=== PATIENT | female | born 1960 | race Caucasian/White ===

== ENCOUNTER → 2018-01-01 13:54 | Outpatient (CLI) | payer BC, SELFPAY ==
--- NOTE | 2018-01-01 13:58 | RAD_ITS ---
STUDY: X-RAY - LEFT KNEE REASON FOR EXAM: Female, 57 years old. Pain. TECHNIQUE: Single frontal view(s) of the knee. COMPARISON: None. FINDINGS: Extremely limited single view of the knee. No gross acute fracture. No gross displacement. Mild narrowing of the left medial compartment. RAD/Knee 1 or 2 Views IMPRESSION: No acute abnormality on extremely limited single frontal view of the knee. If clinically indicated, an actual knee series should be performed. Electronically Signed: Shaka Humphrey MD at 9:45 EDT , Service support ,
--- NOTE | 2018-01-01 13:58 | RAD_ITS ---
STUDY: X-RAY - PELVIS AND BILATERAL HIPS REASON FOR EXAM: Female, 57 years old. Pain TECHNIQUE: Radiological exam, hip, bilateral, with pelvis when performed; 2 views COMPARISON: None. FINDINGS: There is a non-specific bowel gas pattern. Normal visualized soft tissue structures. Normal bilateral iliac wings, sacroiliac joints and visualized sacrum. Normal bilateral superior and inferior pubic rami. Normal pubic symphysis. Normal bilateral ischial tuberosities. Normal visualized right femoral head. Normal right acetabulum. Normal right hip joint. Normal visualized left femoral head. Normal left acetabulum. Normal left hip joint. RAD/Hips B/L min 2 views w/ Pelvis IMPRESSION: Normal x-ray examination of the pelvis and bilateral hips. Electronically Signed: Shaka Humphrey MD at 9:48 EDT , Service support ,
--- NOTE | 2018-01-01 13:58 | RAD_ITS ---
STUDY: X-RAY - LEFT HAND REASON FOR EXAM: Female, 57 years old. Pain TECHNIQUE: 3 view(s) of the hand. 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 There is no evidence of acute fracture or dislocation. There are no significant degenerative changes. There are no radiodense foreign bodies. RAD/Hand Min 3 Views IMPRESSION: No acute fracture or dislocation. 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 Electronically Signed: Dakota Millan, at 21:15 EDT Tel , Service support ,
--- NOTE | 2018-01-01 13:58 | RAD_ITS ---
STUDY: X-RAY - RIGHT KNEE REASON FOR EXAM: Female, 57 years old. Pain. TECHNIQUE: Single frontal view(s) of the knee. COMPARISON: None. FINDINGS: Extremely limited single view of the knee. No gross acute fracture. No gross displacement. Mild narrowing of the left medial compartment. RAD/Knee 1 or 2 Views IMPRESSION: No acute abnormality on extremely limited single frontal view of the knee. If clinically indicated, an actual knee series should be performed. Electronically Signed: Shaka Humphrey MD at 9:45 EDT , Service support ,
--- NOTE | 2018-01-01 14:00 | RAD_ITS ---
STUDY: X-RAY - RIGHT HAND REASON FOR EXAM: Female, 57 years old. Pain TECHNIQUE: 3 view(s) of the hand. COMPARISON: None. FINDINGS: There is no evidence of fracture or dislocation. There are no significant degenerative changes. There are no radiodense foreign bodies. RAD/Hand Min 3 Views IMPRESSION: No fracture or dislocation. Electronically Signed: Dakota Millan, at 21:19 EDT Tel , Service support ,
== END ==
PROVIDERS: Family Provider Internal Medicine; PCP Internal Medicine; Visit Provider Internal Medicine
DX: M25.561 Pain in right knee (principal); M25.562 Pain in left knee; M79.641 Pain in right hand; M79.642 Pain in left hand; M25.551 Pain in right hip; M25.552 Pain in left hip
CPT/HCPCS: 73130; 73521; 73560

== ENCOUNTER → 2019-01-03 | Outpatient (CLI) | payer BC, SELFPAY ==
--- NOTE | 2019-01-03 11:08 | US_ITS ---
STUDY: ABDOMINAL ULTRASOUND - RIGHT UPPER QUADRANT REASON FOR VISIT: Female, 58 years old. Elevated liver enzymes. TECHNIQUE: Ultrasound evaluation of the right upper quadrant was performed with real-time and static davidson-scale imaging. TECHNICAL QUALITY: Adequate. COMPARISON: None. FINDINGS: Liver: The liver measures 13.3 cm. There is normal echogenicity of the liver. The bile ducts are within normal limits. There is hepatic color flow. The direction of portal flow is hepatopetal. There is no demonstrated mass lesion. Gallbladder: Normal distended gallbladder. The gallbladder wall measures 2 mm. There is a negative sonographic Guy's sign. There is no pericholecystic fluid. There are no gallstones. Common Bile Duct (C.B.D.): The common bile duct measures 2 mm. Pancreas: Normal size of the head, body and tail of the pancreas. There is normal echogenicity of the pancreas. There is no demonstrated pancreatic mass or cyst. Right Kidney: Normal size of the right kidney. The right kidney measures 11.2 cm. Normal renal cortex. The right cortex measures 1.0 cm. There is no demonstrated renal mass or cyst. There is no right hydronephrosis. US/Liver IMPRESSION: Normal right upper quadrant ultrasound examination. Electronically Signed: Rolf Rodriguez MD at 15:35 EDT , Service support ,
== END | disposition home or self-care (01) ==
LOC: US 11:00
PROVIDERS: Family Provider Internal Medicine; PCP Internal Medicine; Referring Provider Nurse Practitioner; Visit Provider Nurse Practitioner
DX: R74.8 Abnormal levels of other serum enzymes (principal)
CPT/HCPCS: 76705

== ENCOUNTER → 2019-05-20 | Outpatient (CLI) | payer BC, SELFPAY ==
[2019-05-20 15:42] LABS: Color, Urine Yellow (Yellow); Glucose, Dipstick Normal (Normal); Ketone-Dipstick Negative (Negative); Leukocyte Esterase-Dipstick Negative /ul (Negative); Nitrite-Dipstick Negative (Negative); Occult Blood-Urine Negative /ul (Negative); Protein-Dipstick Negative (Negative); Urine Bilirubin Dipstick Negative (Negative); Urine Clarity Clear (Clear); Urine Urobilinogen Normal (Normal)
[2019-05-20 15:48] LABS: Prothrombin Time (Protime)PT. 12.7 SECONDS (11.7-14.9)
[2019-05-20 15:49] LABS: Partial Thromboplast Time 28.9 Seconds (24.1-36.2)
[2019-05-20 15:59] LABS: Hematocrit 43.1 % (37-47); Hemoglobin 13.9 g/dL (12.0-15.0); Mean Corp Hgb Conc 32.3 g/dL (32-36); Mean Corpuscular Hgb 28.9 pg (27.0-32.0); Mean Corpuscular Volume 89.6 fL (81-99); Mean Platelet Vol. 12.5 fl (6.2-12.0); Platelet Count 264 K/mm3 (150-450); RBC Distribution Width CV 13.1 % (11.6-14.6); RBC Distribution Width SD 42.7 fl (35.1-43.9); Red Blood Count 4.81 M/mm3 (4.2-5.4); White Blood Count 5.8 K/mm3 (4.4-11.0)
[2019-05-20 16:14] LABS: Anion Gap 10 (5-15); BUN 22 mg/dL (7-18); BUN/Creat Ratio 30.8 RATIO (10-20); Calcium,Total 8.6 mg/dL (8.5-10.1); Chloride 109 mmol/L (98-107); Creatinine, Serum 0.72 mg/dL (0.55-1.02); EST Glomerular Filtration Rate 88 mL/min (>60); Est Glom Filt Rate - Afr Amer 107 mL/min (>60); Glucose 80 mg/dL (74-106); Potassium 3.5 mmol/L (3.5-5.1); Sodium Level 144 mmol/L (136-145)
== END | disposition home or self-care (01) ==
LOC: MTLAB 13:55
PROVIDERS: Family Provider Internal Medicine; PCP Internal Medicine; Referring Provider Orthopaedic Surgery; Visit Provider Orthopaedic Surgery
DX: M17.11 Unilateral primary osteoarthritis, right knee (principal); M21.161 Varus deformity, not elsewhere classified, right knee
CPT/HCPCS: 36415; 80048; 81002; 85027; 85610; 85730; 87086; 87088

== ENCOUNTER 2020-01-09 12:50 | Emergency (ER) | payer BC, SELFPAY ==
[2020-01-09 12:51] VITALS: BP 155/78; PULSE 65; RESP 16; TEMP 36.1; O2SAT 97; BMI 26.5
--- NOTE | 2020-01-09 13:02 | CT_ITS ---
STUDY: CT BRAIN WITHOUT CONTRAST REASON FOR EXAM: Female, 59 years old. DIZZINESS, N/V, RT EAR PAIN, GENERAL WEAKNESS RADIATION DOSAGE (If Supplied By Facility): CTDIvol = ( 44.99 ) mGy, DLP = ( 745.49 ) mGycm TECHNIQUE: Transaxial CT imaging of the brain was performed without administration of intravenous contrast material. Individualized dose optimization techniques were used for this CT. COMPARISON: No relevant priors. FINDINGS: Normal soft tissue structures. Normal calvarium. Normal size ventricles and extra-axial spaces for the patient''s age. Normal white matter tracts of the cerebral hemispheres. Normal basal ganglia and thalami. Normal brainstem. Normal cerebellum. There is no intracranial hemorrhage. There are no findings of an acute ischemic infarction. Normal visualized paranasal sinuses. CT/Brain/Head without Contrast IMPRESSION: No acute intracranial abnormality. Electronically Signed: Derrek Cha, at 14:39 EDT Tel , Service support ,
--- NOTE | 2020-01-09 13:08 | ED.VIS.GEN ---
History of Present Illness Chief Complaint: Dizziness Informant: Patient Onset: Today Context: Sudden Onset Timing: Continuous Current Severity: Moderate Maximum Severity: Moderate Narrative: The patient is an otherwise healthy 59-year-old female presents to the emergency department with further acute onset dizziness that she describes a sensation of motion. Patient states she had a mild headache this morning. She states she got significant pressure in her right ear, and then began to have acute vertiginous symptoms. She states she is been nauseated with vomiting. She states if she moves, and makes her symptoms worse. She is never had anything like this before. She denies any fevers or chills. She denies any other upper respiratory symptoms. She states she is otherwise been in her normal state of health. Prior similar symptoms: No Recent Illness/Hospitalization: No Past Medical History - Allergies and Home Meds Allergies/Adverse Reactions: Allergies No Known Allergies Allergy (Verified 01/09/20 12:52) Primary Care Physician: Isabel Bhakta DO [Primary Care Provider] - Prior records reviewed: Yes Past Medical History: None Surgical History: noncontributory Review of Systems General: Denies: Chills, Fever, Sweats Eyes: Denies: Visual changes - bilaterally, Diplopia ENT: Reports: Right ear pain. Denies: Rhinorrhea, Sore throat Cardiovascular: Denies: Chest pain, Palpitations Respiratory: Denies: Dyspnea, Cough, Dyspnea on exertion Gastrointestinal: Reports: Nausea, Vomiting. Denies: Abdominal pain, Diarrhea, Melena, Hematochezia Genitourinary: Denies: Dysuria, Hematuria, Frequency Musculoskeletal: Denies: Back pain, Extremity Pain Skin: Denies: Rash, Wounds Neurological: Reports: Headache. Denies: Weakness, Numbness Physical Exam Vital Signs/Narrative: Vital Signs Temp Pulse Resp BP Pulse Ox 01/09/20 12:51 97 F L 65 16 155/78 H 97 Inital Vital Signs reviewed: Yes General: Well nourished, Well developed, No Acute Distress Head: Normocephalic, Atraumatic Eyes: Perrl, EOMI ENT: Moist mucous membranes, No rhinorrhea Neck: Supple, Nontender Cardiovascular: Regular rate, Regular rhythm, No murmurs Respiratory: No distress, CTA bilaterally, Chest nontender Abdomen: Soft, Nontender, Nondistended, Normal bowel sounds Back: Nontender, Normal Inspection Extremities: Nontender, No edema Skin: Normal color, No rash Neurological: Alert, Oriented x3, Cranial nerves II-XII grossly intact, Normal Strength, Normal Sensation Psychological: Normal affect, Normal Mood Diagnostic/Tx/Re-eval Clinical Impression(s) from Imaging Studies Brain CT 01/09/20 13:02 IMPRESSION: No acute intracranial abnormality. Electronically Signed: Derrek Cha, at 14:39 EDT Tel , Service support , Abnormal Lab Results 01/09/20 01/09/20 01/09/20 13:25 13:25 14:00 WBC 6.7 RBC 4.87 Hgb 14.5 Hct 44.9 MCV 92.2 MCH 29.8 MCHC 32.3 RDW Std Deviation 45.4 H RDW Coeff of Melva 13.3 Plt Count 254 MPV 11.9 Immature Gran % (Auto) 0.300 Neut % (Auto) 68.1 Lymph % (Auto) 22.5 [place] % (Auto) 5.5 Eos % (Auto) 3.0 Baso % (Auto) 0.6 Absolute Neuts (auto) 4.6 Absolute Lymphs (auto) 1.51 Nucleated RBC % 0 Sodium Cancelled 140 Potassium Cancelled 3.8 Chloride Cancelled 108 H Carbon Dioxide Cancelled 24.0 Anion Gap Cancelled 8 BUN Cancelled 27 H Creatinine Cancelled 0.77 Estim Creat Clear Calc Cancelled 61.45 Est GFR (MDRD) Af Amer Cancelled 98 Est GFR (MDRD) Non-Af Cancelled 81 BUN/Creatinine Ratio Cancelled 35.0 H Glucose Cancelled 97 Calcium Cancelled 8.7 - Medical Decision Making Patient presents with rather acute onset vertiginous symptoms. With any motion, she gets acutely nauseated. Patient was given IV fluids, antiemetics, and benzodiazepines to help with her vertiginous symptoms. Screening labs were obtained were unremarkable. Noncontrast head CT shows no acute abnormalities. Patient did attempt to ambulate. Patient was able to ambulate with a steady gait without any symptoms. She has no persistent vertiginous symptoms that make me concerned for a central cause. Is now her symptoms are controlled and she is feeling improved, I do feel that she is safe for discharge. She will be treated with vertiginous medications. She was counseled on concerning symptoms and reasons to return. Impression 1. Vertigo ED Disposition - Plan for ED Patient: Instructions: ED BPV Vertigo Prescriptions: Prednisone [Deltasone] 40 mg PO DAILY #10 tab Prescription Printed Meclizine HCl 25 mg PO Q8H PRN PRN #30 tab PRN Reason: Vertigo Prescription Printed Ondansetron [Zofran Odt] 4 mg PO Q8H PRN PRN #10 tab PRN Reason: Nausea Prescription Printed Referrals: Isabel Bhakta DO [Primary Care Provider] -
[2020-01-09] MEDS: proMETHazine 25 MG/ML Syringe 6.25 MG IV (13:28)
[2020-01-09] MEDS: diazePAM 10 MG/2 ML Syringe 6 MG IV (13:30)
[2020-01-09 13:47] LABS: Absolute Lymphocyte Count 1.51 X10^3/uL (0.83-4.51); Absolute Neutrophil Count 4.6 X10^3/uL (2.0-7.7); Basophil# 0.04 X10^3/uL; Basophil% 0.6 % (0-1); Hematocrit 44.9 % (37-47); Hemoglobin 14.5 g/dL (12.0-15.0); Lymphocyte # 1.51 X10^3/ul (4.0); Lymphocyte % 22.5 % (19-41); Mean Corp Hgb Conc 32.3 g/dL (32-36); Mean Corpuscular Hgb 29.8 pg (27.0-32.0); Mean Corpuscular Volume 92.2 fL (81-99); Mean Platelet Vol. 11.9 fl (6.2-12.0); Monocyte# 0.37 X10^3/uL; Monocyte% 5.5 % (0-10); NRBC Flagged by Analyzer 0 % (0-5); Neutrophil # 4.58 X10^3/uL (2.7-7.7); Neutrophil % 68.1 % (47-70); Platelet Count 254 K/mm3 (150-450); RBC Distribution Width CV 13.3 % (11.6-14.6); RBC Distribution Width SD 45.4 fl (35.1-43.9); Red Blood Count 4.87 M/mm3 (4.2-5.4); White Blood Count 6.7 K/mm3 (4.4-11.0)
[2020-01-09 14:26] LABS: Anion Gap 8 (5-15); BUN 27 mg/dL (7-18); Calcium,Total 8.7 mg/dL (8.5-10.1); Chloride 108 mmol/L (98-107); Creatinine, Serum 0.77 mg/dL (0.55-1.02); EST Glomerular Filtration Rate 81 mL/min (>60); Est Glom Filt Rate - Afr Amer 98 mL/min (>60); Estimated Creatinine Clearance 61.45 ml/min; Glucose 97 mg/dL (74-106); Potassium 3.8 mmol/L (3.5-5.1); Sodium Level 140 mmol/L (136-145)
[2020-01-09 15:25] VITALS: BP 135/91; PULSE 63; RESP 19; O2SAT 99
== END 2020-01-09 16:00 | disposition home or self-care (01) ==
PROVIDERS: Emergency Provider Emergency Medicine; PCP Internal Medicine
DX: H81.10 Benign paroxysmal vertigo, unspecified ear (principal); R51 Headache; H92.01 Otalgia, right ear
CPT/HCPCS: 70450; 80048; 85025; 96374; 96375; 99285; J7040; A4216

== ENCOUNTER 2021-03-02 00:39 | Observation (INO) | payer BC, SELFPAY ==
[2021-03-02] VITALS (11 sets, daily range): BP systolic 122–186; BP diastolic 72–107; PULSE 56–73; RESP 16–18; TEMP 36.4–36.8; O2SAT 95–99; BMI 31.2; BMI 31.6
--- NOTE | 2021-03-02 01:00 | CT_ITS ---
STUDY: CTA CHEST REASON FOR EXAM: Female, 61 years old. r/o dissection RADIATION DOSAGE (If Supplied By Facility): CTDIvol = ( 13.35 ) mGy, DLP = ( 492.13 ) mGycm TECHNIQUE: The examination was performed with the intravenous administration of IV 100mL Isovue-370. Post-processing of the angiographic images was performed, with multiplanar reformation and 3D reconstruction. Individualized dose optimization techniques were used for this CT. COMPARISON: None. FINDINGS: Normal enhancement of the main pulmonary artery and right and left pulmonary arteries. Normal enhancement of the bilateral peripheral pulmonary arteries. There is no demonstrated pulmonary embolism. Normal thoracic aorta and visualized great vessels. There is no demonstrated aortic dissection. Normal cardiac size. Normal mediastinum. Normal hilar regions. Normal visualized trachea and bronchi. The lungs are well expanded. Minimal posterior dependent atelectasis otherwise normal pulmonary parenchyma. Normal pleura. Normal chest wall structures. There are degenerative changes of thoracic spine. There is partial fusion of T9 and T10 vertebral bodies. No acute fracture. Minimal hiatal hernia versus thickening of distal esophageal wall. If indicated, these findings may be assessed with upper endoscopy. CT/CTA Chest W/WO Contrast IMPRESSION: Negative CTA chest examination, without a demonstrated pulmonary embolism or arterial dissection. Minimal posterior dependent/lower lobe atelectasis otherwise no acute cardiopulmonary process. Hiatal hernia versus thickening of distal esophageal wall. If indicated, this may be further assessed with upper endoscopy. Electronically Signed: Elsi De León MD at 2:39 EDT , Service support ,
--- NOTE | 2021-03-02 01:00 | EKG12_ITS ---
Test Reason : CP Blood Pressure : / mmHG Vent. Rate : 061 BPM Atrial Rate : 061 BPM P-R Int : 134 ms QRS Dur : 096 ms QT Int : 370 ms P-R-T Axes : 046 002 082 degrees QTc Int : 372 ms Normal sinus rhythm Inferior infarct , age undetermined Abnormal ECG Confirmed by DARIEN GIRALDO, MARYBEL ([id number]), editor managing director FISH IBARRA ([id number]) on 03/02/2021 12:02:47 PM Referred By: OLENA Confirmed By:MARYBEL LEDEZMA MD
[2021-03-02 01:10] LABS: Absolute Lymphocyte Count 2.23 X10^3/uL (0.83-4.51); Absolute Neutrophil Count 3.1 X10^3/uL (2.0-7.7); Basophil# 0.05 X10^3/uL; Basophil% 0.8 % (0-1); Eosinophils% 4.8 % (0-5); Hemoglobin 13.7 g/dL (12.0-15.0); Lymphocyte # 2.23 X10^3/ul (0.83-4.51); Lymphocyte % 35.3 % (19-41); Mean Corp Hgb Conc 32.6 g/dL (32-36); Mean Corpuscular Hgb 29.1 pg (27.0-32.0); Mean Corpuscular Volume 89.4 fL (81-99); Mean Platelet Vol. 11.3 fl (6.2-12.0); Monocyte# 0.59 X10^3/uL; Monocyte% 9.4 % (0-10); NRBC Flagged by Analyzer 0 % (0-5); Neutrophil # 3.12 X10^3/uL (2.7-7.7); Neutrophil % 49.4 % (47-70); Platelet Count 225 K/mm3 (150-450); RBC Distribution Width CV 13.4 % (11.6-14.6); RBC Distribution Width SD 44.2 fl (35.1-43.9); White Blood Count 6.3 K/mm3 (4.4-11.0)
[2021-03-02] MEDS: Aspirin 81 MG TAB.CHEW 324 MG PO (01:12)
[2021-03-02 01:28] LABS: Anion Gap 4 (5-15); BUN 29 mg/dL (7-18); Calcium,Total 8.7 mg/dL (8.5-10.1); Chloride 107 mmol/L (98-107); Creatinine, Serum 0.76 mg/dL (0.55-1.02); EST Glomerular Filtration Rate 82 mL/min (>60); Est Glom Filt Rate - Afr Amer 99 mL/min (>60); Glucose 100 mg/dL (74-106); Potassium 3.6 mmol/L (3.5-5.1); Sodium Level 137 mmol/L (136-145)
--- NOTE | 2021-03-02 03:05 | EX.ED.DYSGE1 ---
HPI History of Present Illness Chief Complaint: Other, Pain/Inj Informant: patient Onset/Context/Timing Onset: Today Current Severity: Moderate Maximum Severity: Severe Narrative Narrative: 61-year-old female presenting with chest pain. She states that she began having pain in her mid back which then radiated to her chest. She states the pain then went down both arms. She had associated nausea and diaphoresis with this. She states initially pain was 10 out of 10, currently 4 out of 10. She has a family history of heart disease. She is not a smoker. No PE/DVT risk factors. Prior similar symptoms: No Recent Illness/Hospitalization: No PFSH PFSH Home Medications NK 03/02/21 [History Last Taken Unknown] Allergy/AdvReac Type Severity Reaction Status Date / Time No Known Allergies Allergy Verified 03/02/21 00:46 Social History Smoking Status: Never smoker ROS ROS ED Constitutional Constitutional ED: Denies fever(s) Eyes Eyes: Denies change in vision ENT ENT ED: Denies rhinorrhea or sore throat Cardiovascular Cardiovascular: Reports chest pain; Denies palpitations Respiratory/Chest Respiratory/Chest: Denies cough or dyspnea Gastrointestinal Gastrointestinal: Reports nausea; Denies abdominal pain, diarrhea or vomiting Genitourinary Genitourinary ED: Denies dysuria Musculoskeletal Musculoskeletal: Reports back pain; Denies myalgias Integumentary Denies rash Neurologic Neurologic: Denies headache(s) Psychiatric Psychiatric: Denies suicidal thoughts EXAM Physical Exam Const Vital Signs: 03/02/21 00:40 03/02/21 00:46 03/02/21 01:08 Temperature 97.7 F L Temperature Source Oral Pulse Rate 73 Respiratory Rate 18 Respiratory Effort Normal Non-Labored Respiratory Pattern Normal Blood Pressure 186/92 H Blood Pressure Mean 123 Pulse Ox 96 Oxygen Delivery Method Room Air Room Air 03/02/21 03:23 Temperature Temperature Source Pulse Rate Respiratory Rate 16 Respiratory Effort Respiratory Pattern Blood Pressure Blood Pressure Mean Pulse Ox Oxygen Delivery Method Positive well nourished and well developed General Appearance ED: well developed HEENT Reports normocephalic and head/scalp atraumatic Eyes PERRL and EOMs intact bilaterally Neck supple General: Negative for tenderness Chest Wall inspection of chest normal Resp normal respiratory effort and clear to auscultation bilaterally Cardio regular rate and regular rhythm GI non-tender and non-distended Palpation: soft; Negative for guarding or rebound tenderness present no CVA tenderness Extremity normal to inspection Neuro oriented x3 Sensorium / Orientation: alert Psych mental status grossly normal MDM MDM MDM Narrative Medical decision making narrative: Patient was given aspirin on arrival. EKG is sinus rhythm rate of 61 with no acute ischemic changes. On reevaluation patient is chest pain-free. Her heart score is 4. Discussed with hospitalist for observation. Lab Data Attestation: I reviewed the patient's lab results. Labs: Laboratory Results - last 24 hr 03/02/21 03/02/21 01:05 01:05 WBC 6.3 RBC 4.70 Hgb 13.7 Hct 42.0 MCV 89.4 MCH 29.1 MCHC 32.6 RDW Std Deviation 44.2 H RDW Coeff of Melva 13.4 Plt Count 225 MPV 11.3 Immature Gran % (Auto) 0.300 Neut % (Auto) 49.4 Lymph % (Auto) 35.3 [place] % (Auto) 9.4 Eos % (Auto) 4.8 Baso % (Auto) 0.8 Absolute Neuts (auto) 3.1 Absolute Lymphs (auto) 2.23 Nucleated RBC % 0 Sodium 137 Potassium 3.6 Chloride 107 Carbon Dioxide 26.0 Anion Gap 4 L BUN 29 H Creatinine 0.76 Estim Creat Clear Calc 60.70 Est GFR (MDRD) Af Amer 99 Est GFR (MDRD) Non-Af 82 BUN/Creatinine Ratio 38.0 H Glucose 100 Calcium 8.7 Troponin I High Sens 39.0 Radiography Diagnostic Testing: Radiology Impression Chest CTA 03/02/21 01:00 IMPRESSION: Negative CTA chest examination, without a demonstrated pulmonary embolism or arterial dissection. Minimal posterior dependent/lower lobe atelectasis otherwise no acute cardiopulmonary process. Hiatal hernia versus thickening of distal esophageal wall. If indicated, this may be further assessed with upper endoscopy. Electronically Signed: Elsi De León MD at 2:39 EDT , Service support , EKG Initial EKG: Attestation: I personally reviewed and interpreted this EKG as follows: Interpretation: Sinus Rhythm and No Acute Injury Pattern Discharge Plan Triage Chief Complaint: Other, Pain/Inj ED Provider: Caprice Bull Dx/Rx/DC Orders Clinical Impression: Chest pain Prescriptions: No Action NK RF: 0 Primary Care Provider: Isabel Bhakta Referrals: Isabel Bhakta, [Primary Care Provider] - Disposition Disposition: Acute Care Hospital [facility]
--- NOTE | 2021-03-02 03:32 | PCM.HP.STD ---
HPI - General HPI Narrative BRAYAN PABON, is a 61 F with a PMH as outlined who presents with a complaint of chest pain which started in her mid back and radiated to her chest. Chest pain went down both arms, and she rated it at 10/10 initially, though it came down to 4/10. She denied any lightheadedness, fever, chills, nausea or ovmiting. REview of systems is otherwise negative. She has no history of heart disease but she does have a family history of heart disease. Vitals in the ED showed BP of 155/68, AL of 65, temp of 97 and RR of 16. CBC was unremarkable and BMP was unremarkable. Initial troponin was also negative. EKG showed no acute changes. Due to concerns for dissection, she had a CTA done in the ED which was negative for any evidence of dissection or PE. She has been admitted to medicine for chest pain to rule out ACS. [facility] Home Medications NK 03/02/21 [History Last Taken Unknown] Allergy/AdvReac Type Severity Reaction Status Date / Time No Known Allergies Allergy Verified 03/02/21 00:46 Social History Smoking Status: Never smoker ROS Constitutional Constitutional: Denies anorexia, fever(s) or weakness Eyes Eyes: Denies double vision ENT HEENT: Denies ear pain or nasal congestion Cardiovascular Cardiovascular: Reports chest pain; Denies dyspnea on exertion, edema, lightheadedness, orthopnea or palpitations Respiratory/Chest Respiratory/Chest: Denies cough, dyspnea, productive cough, shortness of breath at rest or shortness of breath with exertion Gastrointestinal Gastrointestinal: Denies abdominal pain, constipation, diarrhea, nausea or vomiting Genitourinary Genitourinary: Denies burning urination or difficulty urinating Musculoskeletal Musculoskeletal: Denies arthralgias Neurologic Neurologic: Denies abnormal gait, confusion, dizziness, focal weakness or headache(s) Psychiatric Psychiatric: Denies anxiety Endocrine Endocrinology: Denies change in body appearance Vital Signs Vital Signs Vital Signs: 03/02/21 00:40 03/02/21 00:46 03/02/21 01:08 Temperature 97.7 F L Temperature Source Oral Pulse Rate 73 Respiratory Rate 18 Respiratory Effort Normal Non-Labored Respiratory Pattern Normal Blood Pressure 186/92 H Blood Pressure Mean 123 Pulse Ox 96 Oxygen Delivery Method Room Air Room Air 03/02/21 03:23 Temperature Temperature Source Pulse Rate Respiratory Rate 16 Respiratory Effort Respiratory Pattern Blood Pressure Blood Pressure Mean Pulse Ox Oxygen Delivery Method Weight Weight: 170 lb 13.732 oz Body Mass Index (BMI) 31.2 Physical Exam Const alert, oriented x3 and no apparent distress General Appearance: cooperative HEENT normocephalic, head/scalp atraumatic, hearing grossly normal bilaterally and moist oral mucous membranes Eyes PERRL, EOMs intact bilaterally and conjunctivae normal Neck no lymphadenopathy Resp normal respiratory effort, no retractions, no use of accessory muscles and clear to auscultation bilaterally Cardio regular rate, regular rhythm, S1 normal heart sound, S2 normal heart sound and no murmurs GI normal to inspection, nondistended, normoactive bowel sounds, soft to palpation, non-tender and non-distended Extremity normal to inspection Peripheral Pulses: Yes pulses 2+ throughout Skin no rashes or lesions noted Neuro oriented x3 Sensorium / Orientation: awake and alert Psych affect normal Results Lab / Micro Data Result Diagrams: 03/02/21 01:05 03/02/21 01:05 Labs: Laboratory Results - last 24 hr 03/02/21 01:05: WBC 6.3, RBC 4.70, Hgb 13.7, Hct 42.0, MCV 89.4, MCH 29.1, MCHC 32.6, RDW Std Deviation 44.2 H, RDW Coeff of Melva 13.4, Plt Count 225, MPV 11.3, Immature Gran % (Auto) 0.300, Neut % (Auto) 49.4, Lymph % (Auto) 35.3, [place] % (Auto) 9.4, Eos % (Auto) 4.8, Baso % (Auto) 0.8, Absolute Neuts (auto) 3.1, Absolute Lymphs (auto) 2.23, Nucleated RBC % 0 03/02/21 01:05: Sodium 137, Potassium 3.6, Chloride 107, Carbon Dioxide 26.0, Anion Gap 4 L, BUN 29 H, Creatinine 0.76, Estim Creat Clear Calc 60.70, Est GFR (MDRD) Af Amer 99, Est GFR (MDRD) Non-Af 82, BUN/Creatinine Ratio 38.0 H, Glucose 100, Calcium 8.7, Troponin I High Sens 39.0 Radiology Impression Chest CTA 03/02/21 01:00 IMPRESSION: Negative CTA chest examination, without a demonstrated pulmonary embolism or arterial dissection. Minimal posterior dependent/lower lobe atelectasis otherwise no acute cardiopulmonary process. Hiatal hernia versus thickening of distal esophageal wall. If indicated, this may be further assessed with upper endoscopy. Electronically Signed: Elsi De León MD at 2:39 EDT , Service support , Assessment & Plan Assessment/Plan (1) Chest pain: PLAN: #Chest pain to r/o ACS admit to PCU with telemetry initial high sensitivity troponin was only 39 will cycle and trend CTA of the chest was negative for PE, and showed hiatal hernia vs thickening of distal esophageal wall. SL nitroglycerin prn PO aspirin 81mg daily for stress test if troponins are negative DVT prophylaxis: lovenox Charges/Coding Visit Charges OBSV E&M: 63902 Initial observation care L2
[2021-03-02 04:54] LABS: Absolute Neutrophil Count 3.3 X10^3/uL (2.0-7.7); Basophil# 0.04 X10^3/uL; Basophil% 0.7 % (0-1); Eosinophil# 0.26 X10^3/uL; Eosinophils% 4.3 % (0-5); Hematocrit 42.2 % (37-47); Hemoglobin 13.9 g/dL (12.0-15.0); Lymphocyte % 31.4 % (19-41); Mean Corp Hgb Conc 32.9 g/dL (32-36); Mean Corpuscular Hgb 29.8 pg (27.0-32.0); Mean Corpuscular Volume 90.4 fL (81-99); Mean Platelet Vol. 11.1 fl (6.2-12.0); Monocyte# 0.55 X10^3/uL; Monocyte% 9.1 % (0-10); NRBC Flagged by Analyzer 0 % (0-5); Neutrophil % 54.3 % (47-70); Platelet Count 233 K/mm3 (150-450); RBC Distribution Width CV 13.5 % (11.6-14.6); Red Blood Count 4.67 M/mm3 (4.2-5.4); White Blood Count 6.1 K/mm3 (4.4-11.0)
[2021-03-02 05:12] LABS: Anion Gap 7 (5-15); BUN 26 mg/dL (7-18); BUN/Creat Ratio 33.2 RATIO (10-20); Calcium,Total 8.5 mg/dL (8.5-10.1); Chloride 107 mmol/L (98-107); Creatinine, Serum 0.78 mg/dL (0.55-1.02); EST Glomerular Filtration Rate 79 mL/min (>60); Est Glom Filt Rate - Afr Amer 96 mL/min (>60); Estimated Creatinine Clearance 59.15 ml/min; Glucose 93 mg/dL (74-106); Potassium 3.9 mmol/L (3.5-5.1); Sodium Level 140 mmol/L (136-145); Troponin-I HS 41.5 pg/mL (3.0-53.7)
--- NOTE | 2021-03-02 05:55 | EKG12_ITS ---
Test Reason : AM EKG/CP ADMIT Blood Pressure : / mmHG Vent. Rate : 056 BPM Atrial Rate : 056 BPM P-R Int : 128 ms QRS Dur : 100 ms QT Int : 396 ms P-R-T Axes : 044 018 062 degrees QTc Int : 382 ms Sinus bradycardia Confirmed by MARANDA GIRALDO, DEMI ([id number]), editorial project manager FISH IBARRA ([id number]) on 03/03/2021 9:09:46 AM Referred By: CANDICE Confirmed By:DEMI LOW MD
[2021-03-02 06:50] LABS: Troponin-I HS 41.8 pg/mL (3.0-53.7)
[2021-03-02 13:05] LABS: Thyroid Stim Hormone (TSH) 0.88 uIU/mL (0.358-3.74); Troponin-I HS 44.5 pg/mL (3.0-53.7)
--- NOTE | 2021-03-02 13:05 | STRESSREP_ITS ---
Stress Test Report Exercise myocardial perfusion stress test. 61-year-old lady with a history of chest pain. Stress protocol: Resting EKG demonstrates normal sinus rhythm with a rate of 56 bpm. Resting blood pressure is 120/78 mmHg. The patient exercised according to the regular Ray protocol for a total of 7 minutes and 31 seconds. Patient completed 1 mi nute and 31 seconds into stage III of the Ray protocol. The maximum heart rate attained was 148 bpm which was 93% of max infected heart rate the maximum workload was 9.3 metabolic equivalents. At rest there were no ST or T wave changes noted to suggest ischemia at peak exercise there were nonspecific and downsloping ST changes noted with did not meet the criteria for ischemia. No chest pain was noted mild shortness of breath was present though. The test was terminated due to the target heart rate being achieved. There was mild right jaw pain noted of questionable significance. Myocardial perfusion protocol. 11.0 mCi of technetium 99m sestamibi was injected at rest. The patient exercised according to regular Ray protocol and at peak exercise 34.0 mCi of technetium 99m sestamibi was injected. Stress images were obtained. Stress and rest images were reconstructed and compared in the short axis vertical long and horizontal long axis. Gated images were also obtained. Perfusion SPECT analysis: Review of the stress images demonstrate normal uptake of tracer noted in all areas of the myocardium. The resting images similarly demonstrate normal uptake of tracer noted in all areas of the myocardium. No areas of reversibility are noted to suggest ischemia. No previous infarct is noted. Gated SPECT analysis: The gated ejection fraction is 81%. Conclusion: Normal exercise myocardial perfusion stress test at a moderate to high workload. Preserved ejection fraction.
--- NOTE | 2021-03-02 13:18 | PCM.DC ---
Documented by User: Joshua BAGLEY 03/02/21 13:44 Discharge Instructions Diet Discharge Diet: No restrictions Activity Discharge Activity: Return to Normal Activity Dressing / Incision Call your doctor if you observe: Fever of 101 or Higher, Numbness or Tingling, Shortness of breath, Dizziness, Chest pain, Increased palpitations (irregular heartbeat) and Calf discomfort Follow Up Care Please Follow Up With: Primary care provider When: Within the next two weeks. Test Results: Test results from this visit will be discussed in further detail at your follow-up appointment, if applicable. Discharge Plan Admission Admit Date/Time: 03/02/21 03:44 Primary Reason for Your Visit: Chest pain, stress testing negative, Suspected non-cardiac, Hypertension Attending Provider: Petrona Carpenter Primary Care Provider: Isabel Bhakta Instructions Patient Instructions: ED Chest Pain, Noncardiac, ED Hypertension New Begin Treatment Additional Instructions / Restrictions: The chest pain you experienced is not from your heart. The stress test is negative and your heart squeezed normally. The shelter monitor you wore showed no problem with the rhythm of your heart. Additionally, the cardiac enzyme series performed remained normal. Sometimes chest pain can come from a problem with the muscles or skeleton and/or associated with straining or doing some strenuous activity you do not normally perform. Generally Aleve or Motrin will help alleviate this discomfort if these medications are appropriate for you to take. Chest pain can also be associated with anxiety and with this you frequently have racing heart, trouble sleeping and irritability. It can also come from gastroesophageal reflux disease or heartburn. People who smoke experience increased heartburn because nicotine decreases the pressure in the lower esophageal sphincter and causes reflux. This type of discomfort is well treated with drinking a large glass of cold water which strips the acid out of the esophagus or taking Mylanta, Maalox or Pepto-Bismol. Other foods to avoid if you have reflux are chocolate, peppermint and calcium containing products such as Tums. During the admission however your blood pressure was noted to be elevated several times above goal concerning for hypertension. You have been initiated on oral amlodipine and this has been also sent as a prescription to your pharmacy. Please continue this regimen and follow-up with your primary care physicians for further adjustments and changes as needed to obtain blood pressure appropriate control. Discharge Orders/Prescriptions Prescriptions: New amlodipine 10 mg Tablet 10 mg PO DAILY 30 Days Qty: 30 RF: 0 aspirin [Aspirin Low Dose] 81 mg tablet,delayed release (DR/EC) 81 mg PO DAILY 30 Days Qty: 30 RF: 0 Referrals / Follow Up: Isabel Bhakta DO [Primary Care Provider] - Within 2 Weeks Disposition Disposition (needs filled in before D/C Order can be placed): Home, Self Care Documented by User: Dr. Petrona Carpenter MD 03/02/21 14:21 Discharge Instructions Diet Discharge Diet: Low fat / Low cholesterol Activity Discharge Activity: Return to Normal Activity Dressing / Incision Call your doctor if you observe: Fever of 101 or Higher, Shortness of breath, Dizziness, Chest pain, Increased palpitations (irregular heartbeat) and Uncontrolled pain Discharge Plan Admission Admit Date/Time: 03/02/21 03:44 Primary Reason for Your Visit: Chest pain, stress testing negative, Suspected non-cardiac, Hypertension Attending Provider: Petrona Carpenter Primary Care Provider: Isabel Bhakta Instructions Patient Instructions: ED Chest Pain, Noncardiac, ED Hypertension New Begin Treatment Additional Instructions / Restrictions: The chest pain you experienced is not from your heart. The stress test is negative and your heart squeezed normally. The shelter monitor you wore showed no problem with the rhythm of your heart. Additionally, the cardiac enzyme series performed remained normal. Sometimes chest pain can come from a problem with the muscles or skeleton and/or associated with straining or doing some strenuous activity you do not normally perform. Generally Aleve or Motrin will help alleviate this discomfort if these medications are appropriate for you to take. Chest pain can also be associated with anxiety and with this you frequently have racing heart, trouble sleeping and irritability. It can also come from gastroesophageal reflux disease or heartburn. People who smoke experience increased heartburn because nicotine decreases the pressure in the lower esophageal sphincter and causes reflux. This type of discomfort is well treated with drinking a large glass of cold water which strips the acid out of the esophagus or taking Mylanta, Maalox or Pepto-Bismol. Other foods to avoid if you have reflux are chocolate, peppermint and calcium containing products such as Tums. During the admission however your blood pressure was noted to be elevated several times above goal concerning for hypertension. You have been initiated on oral amlodipine and this has been also sent as a prescription to your pharmacy. Please continue this regimen and follow-up with your primary care physicians for further adjustments and changes as needed to obtain blood pressure appropriate control. Discharge Orders/Prescriptions Prescriptions: New amlodipine 10 mg Tablet 10 mg PO DAILY 30 Days Qty: 30 RF: 0 aspirin [Aspirin Low Dose] 81 mg tablet,delayed release (DR/EC) 81 mg PO DAILY 30 Days Qty: 30 RF: 0 Referrals / Follow Up: Isabel Bhakta DO [Primary Care Provider] - Within 2 Weeks Disposition Disposition (needs filled in before D/C Order can be placed): Home, Self Care
--- NOTE | 2021-03-02 13:44 | DS.PCM_ITS ---
Documented by User: Joshua BAGLEY 03/02/21 13:52 Providers Date of Admission: 03/02/21 Primary Care Physician: Dr. Isabel Bhakta DO Reason For Visit: CHEST PAIN Diagnosis Discharge Diagnosis (1) Chest pain: Status: Acute Code(s): R07.9 - Chest pain, unspecified Medications at Discharge Home Medications amlodipine 10 mg PO DAILY 30 Days #30 tab 03/02/21 aspirin [Aspirin Low Dose] 81 mg PO DAILY 30 Days #30 tab 03/02/21 Hospital Course Procedures Nuclear stress test Summary of Care Provided Minutes Spent on Discharge: 35 Hospital Course: Disposition: Patient to be discharged home, no additional therapies or home health care needs identified. 1) chest pain EKG on on admission demonstrated sinus bradycardia with no ST or T wave changes. High-sensitivity troponins not elevated throughout cycle. CT-A demonstrated no evidence of PE or arterial dissection. Cardiac stress test demonstrated normal myocardial perfusion with a preserved ejection fraction of 81%. TSH within normal limits. CBC and BMP unremarkable. Vital signs stable and patient is afebrile. Plan; follow-up with primary care provider within the next 2 weeks. Patient seen by Joshua Worthington PA-C, under the supervision of Dr. Carpenter. Physical Exam Narrative Patient is a 61-year-old female comfortably resting in bed, alert and orient x3. Patient reports resolution of her chest pain on admission. Denies chest pain, shortness of breath, palpitations, hemoptysis, sputum production, fever, chills, N/V/D. Const alert, oriented x3 and no apparent distress HEENT normocephalic, head/scalp atraumatic and hearing grossly normal bilaterally Eyes PERRL, EOMs intact bilaterally and conjunctivae normal Neck no lymphadenopathy, supple and no JVD Resp normal respiratory effort, no retractions, no use of accessory muscles and clear to auscultation bilaterally Cardio regular rate, regular rhythm, no murmurs and no JVD GI normal to inspection, nondistended, normoactive bowel sounds, soft to palpation and non-tender Extremity normal to inspection, full ROM and no clubbing, cyanosis or edema Skin no rashes or lesions noted, no wounds and skin turgor normal Neuro CN's II-XII intact bilaterally Psych affect normal Weight / BMI Weight Weight: 173 lb 4.533 oz Body Mass Index (BMI) 31.6 ABG / Lab / Microbiology Data Result Diagrams: 03/02/21 04:44 03/02/21 04:44 Laboratory: Laboratory Results - last 24 hr 03/02/21 01:05: WBC 6.3, RBC 4.70, Hgb 13.7, Hct 42.0, MCV 89.4, MCH 29.1, MCHC 32.6, RDW Std Deviation 44.2 H, RDW Coeff of Melva 13.4, Plt Count 225, MPV 11.3, Immature Gran % (Auto) 0.300, Neut % (Auto) 49.4, Lymph % (Auto) 35.3, [place] % (Auto) 9.4, Eos % (Auto) 4.8, Baso % (Auto) 0.8, Absolute Neuts (auto) 3.1, Absolute Lymphs (auto) 2.23, Nucleated RBC % 0 03/02/21 01:05: Sodium 137, Potassium 3.6, Chloride 107, Carbon Dioxide 26.0, Anion Gap 4 L, BUN 29 H, Creatinine 0.76, Estim Creat Clear Calc 60.70, Est GFR (MDRD) Af Amer 99, Est GFR (MDRD) Non-Af 82, BUN/Creatinine Ratio 38.0 H, Gluco se 100, Calcium 8.7, Troponin I High Sens 39.0 03/02/21 04:44: WBC 6.1, RBC 4.67, Hgb 13.9, Hct 42.2, MCV 90.4, MCH 29.8, MCHC 32.9, RDW Std Deviation 45.0 H, RDW Coeff of Melva 13.5, Plt Count 233, MPV 11.1, Immature Gran % (Auto) 0.200, Neut % (Auto) 54.3, Lymph % (Auto) 31.4, [place] % (Auto) 9.1, Eos % (Auto) 4.3, Baso % (Auto) 0.7, Absolute Neuts (auto) 3.3, Absolute Lymphs (auto) 1.90, Nucleated RBC % 0 03/02/21 04:44: Sodium 140, Potassium 3.9, Chloride 107, Carbon Dioxide 26.0, Anion Gap 7, BUN 26 H, Creatinine 0.78, Estim Creat Clear Calc 59.15, Est GFR (MDRD) Af Amer 96, Est GFR (MDRD) Non-Af 79, BUN/Creatinine Ratio 33.2 H, Glucose 93, Calcium 8.5, Troponin I High Sens 41.5 03/02/21 06:18: Troponin I High Sens 41.8 03/02/21 12:35: Troponin I High Sens 44.5, TSH 0.88 Radiography Diagnostic Testing: Radiology Impression Chest CTA 03/02/21 01:00 IMPRESSION: Negative CTA chest examination, without a demonstrated pulmonary embolism or arterial dissection. Minimal posterior dependent/lower lobe atelectasis otherwise no acute cardiopulmonary process. Hiatal hernia versus thickening of distal esophageal wall. If indicated, this may be further assessed with upper endoscopy. Electronically Signed: Elsi De León MD at 2:39 EDT , Service support , D/C Instructions Discharge Diet: No restrictions Call your doctor if you observe: Fever of 101 or Higher, Numbness or Tingling, Shortness of breath, Dizziness, Chest pain, Increased palpitations (irregular heartbeat) and Calf discomfort Please Follow Up With: Primary care provider When: Within the next two weeks. Meaningful Use Info Meaningful Use Diagnoses (Choose all that apply): None applicable Discharge Plan Admission Admit Date/Time: 03/02/21 03:44 Primary Reason for Your Visit: Chest pain, stress testing negative, Suspected non-cardiac, Hypertension Attending Provider: Petrona Carpenter Primary Care Provider: Isabel Bhakta Instructions Patient Instructions: ED Chest Pain, Noncardiac, ED Hypertension New Begin Treatment Additional Instructions / Restrictions: The chest pain you experienced is not from your heart. The stress test is negative and your heart squeezed normally. The campus monitor you wore showed no problem with the rhythm of your heart. Additionally, the cardiac enzyme series performed remained normal. Sometimes chest pain can come from a problem with the muscles or skeleton and/or associated with straining or doing some strenuous activity you do not normally perform. Generally Aleve or Motrin will help alleviate this discomfort if these medications are appropriate for you to t bess. Chest pain can also be associated with anxiety and with this you frequently have racing heart, trouble sleeping and irritability. It can also come from gastroesophageal reflux disease or heartburn. People who smoke experience increased heartburn because nicotine decreases the pressure in the lower esophageal sphincter and causes reflux. This type of discomfort is well treated with drinking a large glass of cold water which strips the acid out of the esophagus or taking Mylanta, Maalox or Pepto-Bismol. Other foods to avoid if you have reflux are chocolate, peppermint and calcium containing products such as Tums. During the admission however your blood pressure was noted to be elevated s everal times above goal concerning for hypertension. You have been initiated on oral amlodipine and this has been also sent as a prescription to your pharmacy. Please continue this regimen and follow-up with your primary care physicians for further adjustments and changes as needed to obtain blood pressure appropriate control. Discharge Orders/Prescriptions Prescriptions: New amlodipine 10 mg Tablet 10 mg PO DAILY 30 Days Qty: 30 RF: 0 aspirin [Aspirin Low Dose] 81 mg tablet,delayed release (DR/EC) 81 mg PO DAILY 30 Days Qty: 30 RF: 0 Referrals / Follow Up: Isabel Bhakta DO [Primary Care Provider] - Within 2 Weeks Disposition Disposition (needs filled in before D/C Order can be placed): Home, Self Care Documented by User: Dr. Petrona Carpenter MD 03/02/21 14:25 Providers Date of Admission: 03/02/21 Reason For Visit: CHEST PAIN Medications at Discharge Home Medications amlodipine 10 mg PO DAILY 30 Days #30 tab 03/02/21 aspirin [Aspirin Low Dose] 81 mg PO DAILY 30 Days #30 tab 03/02/21 ABG / Lab / Microbiology Data Result Diagrams: 03/02/21 04:44 03/02/21 04:44 Discharge Plan Admission Admit Date/Time: 03/02/21 03:44 Primary Reason for Your Visit: Chest pain, stress testing negative, Suspected non-cardiac, Hypertension Attending Provider: Petrona Carpenter Primary Care Provider: Isabel Bhakta Instructions Patient Instructions: ED Chest Pain, Noncardiac, ED Hypertension New Begin Treatment Additional Instructions / Restrictions: The chest pain you experienced is not from your heart. The stress test is negative and your heart squeezed normally. The campus monitor you wore showed no problem with the rhythm of your heart. Additionally, the cardiac enzyme series performed remained normal. Sometimes chest pain can come from a problem with the muscles or skeleton and/or associated with straining or doing some strenuous activity you do not normally perform. Generally Aleve or Motrin will help alleviate this discomfort if these medications are appropriate for you to take. Chest pain can also be associated with anxiety and with this you frequently have racing heart, trouble sleeping and irritability. It can also come from gastroesophageal reflux disease or heartburn. People who smoke experience increased heartburn because nicotine decreases the pressure in the lower esophageal sphincter and causes reflux. This type of discomfort is well treated with drinking a large glass of cold water which strips the acid out of the esophagus or taking Mylanta, Maalox or Pepto-Bismol. Other foods to avoid if you have reflux are chocolate, peppermint and calcium containing products such as Tums. During the admission however your blood pressure was noted to be elevated sever al times above goal concerning for hypertension. You have been initiated on oral amlodipine and this has been also sent as a prescription to your pharmacy. Please continue this regimen and follow-up with your primary care physicians for further adjustments and changes as needed to obtain blood pressure appropriate control. Discharge Orders/Prescriptions Prescriptions: New amlodipine 10 mg Tablet 10 mg PO DAILY 30 Days Qty: 30 RF: 0 aspirin [Aspirin Low Dose] 81 mg tablet,delayed release (DR/EC) 81 mg PO DAILY 30 Days Qty: 30 RF: 0 Referrals / Follow Up: Isabel Bhakta DO [Primary Care Provider] - Within 2 Weeks Disposition Disposition (needs filled in before D/C Order can be placed): Home, Self Care
--- NOTE | 2021-03-02 14:02 | PHA.DC.MR ---
Pharmacy Service has performed discharge medication reconciliation for this patient. The patient's discharge medication list was reviewed for discrepancies and discrepancies were resolved. Home Medications NK 03/02/21
== END 2021-03-02 13:19 | disposition home or self-care (01) ==
LOC: ED 03:39 → PCU 03:49
PROVIDERS: Admitting Provider Student in an Organized Health Care Education/Training Program; Emergency Provider Emergency Medicine; PCP Internal Medicine; Visit Provider Family Medicine
DX: R07.89 Other chest pain (principal); Z82.49 Family history of ischemic heart disease and other diseases of the circulatory system; R00.1 Bradycardia, unspecified; I10 Essential (primary) hypertension; E66.9 Obesity, unspecified; Z68.31 Body mass index [BMI] 31.0-31.9, adult
CPT/HCPCS: 36415; 71275; 78452; 80048; 84443; 84484; 85025; 93005; 93017; 99218; 99285; A9500; Q9967; A4216; G0378

== ENCOUNTER → 2021-04-19 09:15 | Outpatient (CLI) | payer BC, SELFPAY ==
--- NOTE | 2021-04-19 09:19 | RAD_ITS ---
Exam: Double contrasted esophagram. Indication: 68-year-old female presenting with dysphagia. Technique: Standard esophagram with barium and effervescent capsules. Fluoroscopy time: 2:05 minutes/seconds. Findings: Unremarkable oropharyngeal phase of swallowing, unremarkable transit of the contrast bolus into the esophagus. Unremarkable transit of the contrast bolus through the esophagus. Irregularity and contractility of the esophagus is visualized, there is delayed transit visualized through the gastroesophageal junction visualized secondary to a 1.3 cm segment of the narrowing visualized in the gastroesophageal junction that delays transit but eventually slightly (, findings suggestive of for irregular circumferential thickening along the wall of the gastroesophageal junction would recommend further evaluation with either endoscopy or CT scan. No evidence of esophageal diverticula is visualized. No evidence of gastroesophageal reflux. RAD/Esophagus Dual Contrast IMPRESSION: 1.3 segment at the gastroesophageal junction demonstrates severe circumferential thickening would recommend further evaluation to rule out a mass. Electronically Signed: Bean Mcrae MD at 12:38 EDT Tel , Service support ,
== END ==
PROVIDERS: PCP Internal Medicine; Referring Provider Internal Medicine Gastroenterology; Visit Provider Internal Medicine Gastroenterology
DX: R13.10 Dysphagia, unspecified (principal)
CPT/HCPCS: 74221

== ENCOUNTER → 2021-05-10 13:30 | Outpatient (CLI) | payer BC, SELFPAY | PROVIDERS: PCP Internal Medicine; Referring Provider Internal Medicine Gastroenterology; Visit Provider Internal Medicine Gastroenterology | DX: Z11.59 Encounter for screening for other viral diseases (principal) | CPT/HCPCS: 87635; C9803; U0005; U0003 ==

== ENCOUNTER 2021-10-24 16:55 | Emergency (ER) | payer BC, SELFPAY ==
[2021-10-24 16:56] VITALS: BP 148/73; PULSE 68; RESP 15; TEMP 36; O2SAT 97; BMI 28.3
--- NOTE | 2021-10-24 17:17 | EX.ED.DYSGE1 ---
HPI History of Present Illness Chief Complaint: Cold Sx Informant: patient Narrative Narrative: 2-week history of postnasal drainage. Cough started 2 days ago due to postnasal drip. Denies asthma or COPD. No fevers or headache. No vomiting or diarrhea. No loss of taste or smell. Nonvaccinated for Covid. Denies sick contacts. States nausea due to coughing sensations. Seasonal allergies is on Claritin daily. Prior similar symptoms: Yes PFSH PFSH Medical History Kidney stones Non-smoker Osteoporosis Home Medications amlodipine 10 mg PO DAILY 30 Days #30 tab 03/02/21 [Rx Last Taken Unknown] aspirin [Aspirin Low Dose] 81 mg PO DAILY 30 Days #30 tab 03/02/21 [Rx Last Taken Unknown] azithromycin 250 mg PO DAILY #4 tab 10/24/21 [Rx Last Taken Unknown] ondansetron 4 mg PO Q6H PRN #10 tab 10/24/21 [Rx Last Taken Unknown] Allergy/AdvReac Type Severity Reaction Status Date / Time No Known Allergies Allergy Verified 03/02/21 00:46 Social History Smoking Status: Never smoker ROS ROS ED Constitutional Constitutional ED: Denies chills, fever(s) or sweats Eyes Eyes: Denies change in vision ENT ENT ED: Reports other Details: Sinus congestion with postnasal drainage ; Denies dysphagia or sore throat Cardiovascular Cardiovascular: Denies chest pain, leg edema, palpitations or racing heartbeat Respiratory/Chest Respiratory/Chest: Reports cough; Denies dyspnea or dyspnea on exertion Gastrointestinal Gastrointestinal: Denies abdominal pain, diarrhea, nausea or vomiting Genitourinary Genitourinary ED: Denies dysuria, hematuria or urinary frequency Musculoskeletal Musculoskeletal: Denies back pain, extremity pain or neck pain Integumentary Denies rash or wounds Neurologic Neurologic: Denies headache(s), paresthesias or weakness EXAM Physical Exam Const Vital Signs: 10/24/21 16:56 10/24/21 17:43 Temperature 96.8 F L Temperature Source Temporal Pulse Rate 68 Respiratory Rate 15 Respiratory Pattern Tachypnea Blood Pressure 148/73 H Blood Pressure Mean 98 Pulse Ox 97 Oxygen Delivery Method Room Air Positive well nourished and well developed Constitutional Narrative: Occasional coughing exam. General Appearance ED: well developed and NAD HEENT Reports TM's clear and moist mucous membranes HEENT Narrative: Clear rhinorrhea no swollen turbinates. normocephalic and atraumatic Tympanic Membrane ED: Yes TM's clear Eyes PERRL, EOMs intact bilaterally and conjunctivae normal General Eye ED: Yes normal appearance of both eyes Neck no lymphadenopathy and supple General: Negative for tenderness Chest Wall Chest: Negative for tenderness Resp normal respiratory effort and normal air movement Effort and Inspection: symmetric chest movement; Negative for respiratory distress Cardio regular rate, regular rhythm and no murmurs Peripheral Pulses: pulses 2+ throughout GI normal to inspection, nondistended, normoactive bowel sounds and non-tender Palpation: Negative for guarding or rebound tenderness present Back/Spine no CVA tenderness and no thoracic nor lumbar tenderness Extremity normal to inspection General Extremety ED: Negative for edema or tenderness General Extremity: Negative for edema Neuro oriented x3 and no sensory deficits noted Sensorium / Orientation: awake and alert Skin no rashes or lesions noted and no wounds MDM MDM MDM Narrative Medical decision making narrative: Vital stable pulse ox 97%. 2 weeks congestion symptoms with start of a cough. Afebrile. She has no other symptoms for concerning Covid except for sinus congestion with 2 weeks of symptoms. With worsening symptoms now with a cough discussed antibiotic treatment for which she agrees. Zithromax started. She given Zofran for nausea. First dose in the ED prescription sent to her pharmacy. Return precautions discussed otherwise follow-up with her PCP. All questions were answered. Discharge Plan Triage Chief Complaint: Cold Sx ED Provider: Steve Mayo Dx/Rx/DC Orders Clinical Impression: Sinusitis, URI (upper respiratory infection) Instructions: ED Upper Resp Infec Abx Tx, ED Sinusitis (Antibiotic Treatment) Prescriptions: New azithromycin [azithromycin] 250 MG tablet 250 mg PO DAILY Qty: 4 RF: 0 ondansetron 4 mg tablet,disintegrating 4 mg PO Q6H PRN (Reason: nausea and vomiting) Qty: 10 RF: 0 No Action amlodipine 10 mg Tablet 10 mg PO DAILY 30 Days Qty: 30 RF: 0 aspirin [Aspirin Low Dose] 81 mg tablet,delayed release (DR/EC) 81 mg PO DAILY 30 Days Qty: 30 RF: 0 Primary Care Provider: Isabel Bhakta Referrals: Isabel Bhakta DO [Primary Care Provider] - 5-7 Days Disposition Disposition: Home, Self Care Discharge Date/Time: 10/24/21 17:46
[2021-10-24] MEDS: Azithromycin 250 MG Tablet 500 MG PO (17:39)
[2021-10-24] MEDS: Ondansetron ODT 4 MG Tablet 8 MG PO (17:39)
== END 2021-10-24 17:46 | disposition home or self-care (01) ==
LOC: ED 17:26
PROVIDERS: Emergency Provider Emergency Medicine; PCP Internal Medicine; Visit Provider Emergency Medicine
DX: J32.9 Chronic sinusitis, unspecified (principal); J06.9 Acute upper respiratory infection, unspecified; J30.2 Other seasonal allergic rhinitis; R11.0 Nausea; M81.0 Age-related osteoporosis without current pathological fracture; Z79.82 Long term (current) use of aspirin; Z79.899 Other long term (current) drug therapy
CPT/HCPCS: 99283

== ENCOUNTER 2023-07-03 05:23 | Emergency (ER) | payer BC, SELFPAY ==
[2023-07-03 05:24] VITALS: BP 170/94; PULSE 61; RESP 16; TEMP 36.4; O2SAT 96; BMI 33.5
--- NOTE | 2023-07-03 05:40 | CT_ITS ---
INDICATION: Kidney Stone COMPARISON: Chest CT 03/02/2021. RADIATION DOSAGE (If Supplied By Facility): CTDIvol = ( 12.21 ) mGy, DLP = ( 567.15 ) mGycm A radiation dose optimization technique was used for this scan. FINDINGS: Noncontrast serial CT axial images through the abdomen and pelvis with coronal and sagittal reformatted series. PANCREAS: No peripancreatic fat stranding. BOWEL/MESENTERY: No dilated bowel loops. No significant free fluid. No free air. Severe diffuse colonic diverticulosis without focus of diverticulitis. GALLBLADDER: No pericholecystic fat stranding. LIVER/STOMACH: Small hiatal hernia. Fatty liver. URINARY COLLECTING SYSTEM/ KIDNEYS: No obstructing ureteral calculus. However, there may be tiny 2 mm calculus within the posterior dependent urinary bladder, which may have recently passed from ureter. No significant renal parenchymal abnormality. UTERUS/ADNEXA: Small posterior exophytic subserosal uterine fibroid containing dystrophic calcifications APPENDIX: Normal caliber gas containing appendix. ABDOMINAL/CHEST WALL: Right medial breast 14 mm asymmetric soft tissue density on axial image 8 of series 2. LUNG BASES: Unremarkable. BONES: Stable L1 superior endplate compression deformity from 2020. CT/Abdomen/Pelvis without Cont IMPRESSION: Right medial breast 14 mm asymmetric soft tissue density. Recommend follow-up mammographic Department evaluation. No obstructing ureteral calculus. However, there may be tiny 2 mm calculus within the posterior dependent urinary bladder, which may have recently passed from ureter. Otherwise, no acute abdominal abnormality is identified, to include normal appendix. Severe diffuse colonic diverticulosis without focus of diverticulitis. Fatty liver. Electronically Signed: Efe Dominique MD at 6:27 EST ,
--- NOTE | 2023-07-03 05:43 | EX.ED.DYSGE1 ---
HPI History of Present Illness Chief Complaint: Flank Pain Informant: patient Narrative Narrative: 63-year-old healthy female presenting to the emergency room with right flank pain. Symptoms began abruptly on her sleep which caused her to wake up around 0400 hrs. Patient states the pain was very severe and she felt nauseous but has subsequently started to subside. She notes some discomfort on the right side of her abdomen. She reports nothing different with her urination this morning she notes no prior abdominal surgeries. She has had a kidney stone 10 to 15 years ago and states that this reminds her very much of that. She was able to pass that stone on her own. [facility] Medical History Acute sinusitis, unspecified Kidney stones Non-smoker Osteoporosis URI (upper respiratory infection) Home Medications NK 07/03/23 [History Last Taken Unknown] Allergy/AdvReac Type Severity Reaction Status Date / Time No Known Allergies Allergy Verified 07/03/23 05:23 Surgical History History of bilateral knee replacement Social History Smoking Status: Never smoker ROS ROS ED Constitutional Constitutional ED: Denies chills, fever(s) or weight loss Eyes Eyes: Denies change in vision or diplopia ENT ENT ED: Denies ear pain, rhinorrhea or sore throat Cardiovascular Cardiovascular: Denies chest pain, orthopnea, palpitations or racing heartbeat Respiratory/Chest Respiratory/Chest: Denies cough, dyspnea or orthopnea Gastrointestinal Gastrointestinal: Reports abdominal pain and nausea; Denies diarrhea or vomiting Genitourinary Genitourinary ED: Denies dysuria, hematuria or urinary frequency Musculoskeletal Musculoskeletal: Reports back pain; Denies arthralgias or myalgias Integumentary Denies abscess or rash Neurologic Neurologic: Denies headache(s) or weakness Psychiatric Psychiatric: Denies anxiety, depression, suicidal ideation or suicidal thoughts Endocrine Endocrinology: Denies polydipsia, polyphagia or polyuria Allergic/Immunologic Allergic/Immunologic ED: Denies mouth swelling, tongue swelling or urticaria EXAM Physical Exam Const Vital Signs: 07/03/23 05:24 07/03/23 07:25 Temperature 97.5 F L Temperature Source Temporal Pulse Rate 61 Respiratory Rate 16 18 Blood Pressure 170/94 H Blood Pressure Mean 119 Pulse Ox 96 Oxygen Delivery Method Room Air Positive well nourished and well developed General Appearance ED: well developed HEENT Reports normocephalic, head/scalp atraumatic and moist mucous membranes Eyes PERRL and EOMs intact bilaterally Neck no lymphadenopathy, supple and no JVD Resp normal respiratory effort and clear to auscultation bilaterally Cardio regular rate, regular rhythm and no murmurs GI normal to inspection, nondistended, normoactive bowel sounds and non-tender Palpation: soft Back/Spine no CVA tenderness and normal ROM Extremity normal to inspection General Extremety ED: Negative for edema General Extremity: Negative for edema Neuro oriented x3 and CN's II-XII intact bilaterally Sensorium / Orientation: alert Motor Exam: strength 5/5 throughout Psych mental status grossly normal Mood & Affect: Negative for depressed or tearful Skin no rashes or lesions noted and no wounds MDM MDM MDM Narrative Medical decision making narrative: Patient received a dose of Toradol. White count is normal at 6.6 with hemoglobin of 15.2. Platelet count of 251. Glucose of [address] ab pelvis demonstrates a 2 mm stone in the dependent portion of the bladder. Patient urinated and passed the stone. Urine shows no overt infection. I think the patient can be discharged home. Would recommend follow-up as needed Of note on the patient's CT there were 2 additional findings which I made sure to tell the patient the first is that she has extensive diverticulosis. She notes that she had a colonoscopy in 2017 and was told she would need another one for 10 years. The second is on the right medial breast she has a 14 mm asymmetric soft tissue density. I recommend that she follow-up with primary care or with her sales project engineer to explore further evaluation for this. The patient notes understanding of this and agrees with its high priority. Lab Data Attestation: I reviewed the patient's lab results. Labs: Laboratory Results - last 24 hr 07/03/23 07/03/23 01:17 05:29 WBC 6.6 RBC 5.19 Hgb 15.2 H Hct 47.4 H MCV 91.3 MCH 29.3 MCHC 32.1 RDW Std Deviation 44.8 H RDW Coeff of Melva 13.2 Plt Count 251 MPV 11.8 Immature Gran % (Auto) 0.500 Neut % (Auto) 58.1 Lymph % (Auto) 28.8 [place] % (Auto) 7.6 Eos % (Auto) 4.1 Baso % (Auto) 0.9 Absolute Neuts (auto) 3.8 Absolute Lymphs (auto) 1.89 Nucleated RBC % 0 Sodium 140 Potassium 3.7 Chloride 109 H Carbon Dioxide 26.0 Anion Gap 5 BUN 32 H Creatinine 0.79 Estim Creat Clear Calc 56.90 Est GFR (MDRD) Af Amer 95 Est GFR (MDRD) Non-Af 78 BUN/Creatinine Ratio 40.7 H Glucose 117 H Calcium 8.3 L Urine Color Yellow Urine Clarity Clear Urine pH 6.0 Ur Specific Murray 1.020 Urine Protein 15 H Urine Glucose (UA) Normal Urine Ketones Negative Urine Occult Blood 250 H Urine Nitrite Negative Urine Bilirubin Negative Urine Urobilinogen Normal Ur Leukocyte Esterase Negative Urine RBC 10-25 SEEN Urine WBC 0 SEEN Ur Squamous Epith Cells 0-5 SEEN Urine Bacteria 0 SEEN Urine Mucus 0 SEEN Radiography Diagnostic Testing: Clinical Impression(s) from Imaging Studies Abdomen/Pelvis CT 07/03/23 05:40 IMPRESSION: Right medial breast 14 mm asymmetric soft tissue density. Recommend follow-up mammographic Department evaluation. No obstructing ureteral calculus. However, there may be tiny 2 mm calculus within the posterior dependent urinary bladder, which may have recently passed from ureter. Otherwise, no acute abdominal abnormality is identified, to include normal appendix. Severe diffuse colonic diverticulosis without focus of diverticulitis. Fatty liver. Electronically Signed: Efe Dominique MD at 6:27 EST , Discharge Plan Triage Chief Complaint: Flank Pain ED Provider: Amari Grier Dx/Rx/DC Orders Clinical Impression: Acute right flank pain, Kidney stone, Diverticulosis, Abnormal breast finding Instructions: ED Kidney Stone, Passed Prescriptions: No Action NK Primary Care Provider: Isabel Bhakta Referrals: Katey Reid MD [Med Staff - Active Staff] - 3-5 Days if not improving (For urology) Isabel Bhakta DO [Primary Care Provider] - Disposition Disposition: Home, Self Care
[2023-07-03 05:50] LABS: Absolute Lymphocyte Count 1.89 X10^3/uL (0.83-4.51); Absolute Neutrophil Count 3.8 X10^3/uL (2.0-7.7); Basophil# 0.06 X10^3/uL; Basophil% 0.9 % (0-1); Eosinophil# 0.27 X10^3/uL; Eosinophils% 4.1 % (0-5); Hematocrit 47.4 % (37-47); Hemoglobin 15.2 g/dL (12.0-15.0); Lymphocyte # 1.89 X10^3/ul (0.83-4.51); Lymphocyte % 28.8 % (19-41); Mean Corp Hgb Conc 32.1 g/dL (32-36); Mean Corpuscular Hgb 29.3 pg (27.0-32.0); Mean Corpuscular Volume 91.3 fL (81-99); Mean Platelet Vol. 11.8 fl (6.2-12.0); Monocyte% 7.6 % (0-10); NRBC Flagged by Analyzer 0 % (0-5); Neutrophil # 3.82 X10^3/uL (2.7-7.7); Neutrophil % 58.1 % (47-70); Platelet Count 251 K/mm3 (150-450); RBC Distribution Width CV 13.2 % (11.6-14.6); RBC Distribution Width SD 44.8 fl (35.1-43.9); Red Blood Count 5.19 M/mm3 (4.2-5.4); White Blood Count 6.6 K/mm3 (4.4-11.0)
[2023-07-03] MEDS: Ketorolac 30 MG/ML Syringe IV (05:55)
[2023-07-03 06:04] LABS: Anion Gap 5 (5-15); BUN 32 mg/dL (7-18); BUN/Creat Ratio 40.7 RATIO (10-20); Calcium,Total 8.3 mg/dL (8.5-10.1); Chloride 109 mmol/L (98-107); Creatinine, Serum 0.79 mg/dL (0.55-1.02); EST Glomerular Filtration Rate 78 mL/min (>60); Est Glom Filt Rate - Afr Amer 95 mL/min (>60); Glucose 117 mg/dL (74-106); Potassium 3.7 mmol/L (3.5-5.1); Sodium Level 140 mmol/L (136-145)
[2023-07-03 07:23] LABS: Bacteria 0 SEEN /hpf (None Seen); Mucous, Urine 0 SEEN /hpf (<or=2+); White Blood Cells 0 SEEN /hpf (0-5)
[2023-07-03 07:25] VITALS: RESP 18
[2023-07-03 07:33] LABS: Color, Urine Yellow (Yellow); Glucose, Dipstick Normal (Normal); Ketone-Dipstick Negative (Negative); Leukocyte Esterase-Dipstick Negative /ul (Negative); Nitrite-Dipstick Negative (Negative); Occult Blood-Urine 250 /ul (Negative); Protein-Dipstick 15 mg/dl (Negative); Urine Bilirubin Dipstick Negative (Negative); Urine Clarity Clear (Clear); Urine Urobilinogen Normal (Normal)
[2023-07-03 08:00] LABS: Red Blood Cells-Urine 10-25 SEEN /hpf (0-5)
[2023-07-03 08:02] LABS: Squamous Epithelial Cells - UA 0-5 SEEN /hpf (5-10)
== END 2023-07-03 08:32 | disposition home or self-care (01) ==
PROVIDERS: Emergency Provider Emergency Medicine; PCP Internal Medicine; Visit Provider Emergency Medicine
DX: R10.9 Unspecified abdominal pain (principal); K57.30 Diverticulosis of large intestine without perforation or abscess without bleeding; N20.0 Calculus of kidney; Z87.442 Personal history of urinary calculi; R94.8 Abnormal results of function studies of other organs and systems
CPT/HCPCS: 74176; 80048; 81001; 85025; 96374; 99283; A4216

== ENCOUNTER → 2023-10-19 | Outpatient (CLI) | payer BC, SELFPAY ==
--- NOTE | 2023-10-19 14:16 | US_ITS ---
STUDY: ULTRASOUND BREAST - RIGHT REASON FOR EXAM: Female, [address] scan. TECHNIQUE: Axial and longitudinal images of the RIGHT breast were performed with a high resolution ultrasound transducer. # OF IMAGES: 37 COMPARISON: None. FINDINGS: RIGHT Breast: There is a 6 mm x 5 mm x 3 mm well defined hypoechoic nodule at the 7:00 position of the breast at 4 cm from the nipple. Biopsy recommended. US/Breast Limited Unilateral IMPRESSION: 6 mm x 5 mm x 3 mm well-defined hypoechoic nodule at the 7:00 position of the breast of 4 cm from the nipple. Biopsy recommended. ASSESSMENT CATEGORY: BIRADS Category 4: Suspicious - Biopsy Should Be Considered. A letter regarding these results will be sent to the patient by the facility within 30 days. Electronically Signed: Al David MD at 15:56 EST ,
--- NOTE | 2023-10-19 14:16 | BI_ITS ---
MAMMOGRAPHY - BILATERAL DIAGNOSTIC REASON FOR EXAM: Female, 63 years old. abnormal breast mass on CT PERTINENT HISTORY: Non-contributory. TECHNIQUE: Digital examination. Mediolateral oblique (MLO) and craniocaudad (CC) views of both breasts were obtained. CAD: CAD was performed on this study. COMPARISON: 07/29/2010 FINDINGS: Breast Composition: There are scattered areas of fibroglandular density. 1 cm oval obscured equal density mass in the lower outer quadrant right breast at mid depth and ultrasound is recommended for further evaluation. No dominant mass left breast. No suspicious calcifications. No other significant abnormalities are identified. BI/DIAG MAMM W/CAD, BILAT IMPRESSION: Further ultrasonographic evaluation recommended, as described above. ASSESSMENT CATEGORY: BIRADS Category 0: Incomplete. Need additional imaging evaluation. A letter regarding these results will be sent to the patient by the facility within 30 days. FOLLOW UP RECOMMENDATION: Ultrasound Recommended. (I) Approximately 10% of breast cancers are not detected by mammography. A normal mammogram should not delay biopsy of a clinically suspicious abnormality. Electronically Signed: Ciaran Fenton MD at 13:29 EST ,
--- OUTSIDE RECORDS SUMMARY | 2023-10-19 16:59 | XMS RPT_ITS | CCD ---
Author Name Unknown Address [address] [place] [address] Organization [facility] Care Team Providers Care Bottom Filler Name Role Phone Maria Antonia Horta Attending Unavailable Brianna Culver Referring Unavailable Maria Antonia Horta Consulting Unavailable Maria Antonia Horta Unavailable Ned Fisher Unavailable Jorge Alberto Allen Unavailable Blaine Recio Unavailable Unavailable Kalina Mae Unavailable Unavailable Unavailable Unavailable LOLIS FREED Attending Unavailable ISABEL PALMER Primary Care Unavailable Johana Hatfield Unavailable Unavailable Blaine Recio Unavailable Unavailable Blaine Mae Unavailable Unavailable Jenifer Reynolds Unavailable Marya Bermudez Unavailable Unavailable Maria Antonia Horta CNP Unavailable Dr. Ned Fisher Unavailable Dr. Jenifer Reynolds Unavailable Jorge Alberto Allen MD Unavailable Blaine Mae LPN Unavailable Unavailable Marya Bermudez LPN Unavailable Unavailable Kalina Mae Unavailable Unavailable Unavailable Unavailable Maria Antonia Horta Unavailable Allergies Allergy Classification Reported Allergen(s) Allergy Type Date of Onset Reaction(s) Facility Mold (1 source) Mold Substance Allergy [facility] Work Phone: (1 source) allergy to substance [facility] Work Phone: (1 source) allergy to substance [facility] Work Phone: (1 source) allergy to substance [facility] Work Phone: (1 source) allergy to substance [facility] Work Phone: (1 source) allergy to substance [facility] Work Phone: (1 source) allergy to substance [facility] Work Phone: (1 source) allergy to substance [facility] Work Phone: (1 source) allergy to substance [facility] Work Phone: (1 source) allergy to substance [facility] Work Phone: (20 sources) Cat dander extract Drug Allergy [facility] Work Phone: (19 sources) Mold allergy to substance [facility] Work Phone: (20 sources) [place] allergy to substance [facility] Work Phone: Medications Completed/Discontinued Medications Medication Drug Class(es) Dates Sig (Normalized) Sig (Original) alendronic acid 70 mg oral tablet (20 sources) Bisphosphonate Start: 12-27-2017 End: 12-27-2017 take 1 tablet by mouth every week Alendronate Sodium 70 MG Oral Tablet 1 (one) Tablet once a week for 0 days Quantity: 12 {Tablet} Refills: 3 Ordered: 27-Dec-2017 Isabel Palmer DO Start : 27-Dec-2017 End : 27-Dec-2017 Discontinued Comments: Give with water 30min before first food/drink/med of the day. Avoid laying down x 30minutes Problems Active Problems Problem Classification Problem Date Documented Da te Episodic/Chronic Abdominal pain (20 sources) Pain in female pelvis; Translations: [Pelvic pain in female] Resolved: 03-30-2017 12-09-2018 Episodic Administrative/social admission (20 sources) Medical examinations/repo rts status; Translations: [Well woman exam] 12-24-2018 Episodic Calculus of urinary tract (20 sources) Calculus of kidney; Translations: [Calculus, kidney] Resolved: 03-30-2017 12-09-2018 Episodic Cardiac dysrhythmias (20 sources) Palpitations; Translations: [Palpitations] Resolved: 03-30-2017 12-09-2018 Episodic Conditions associated with dizziness or vertigo (12 sources) Vertigo; Translations: [Vertigo] 07-09-2020 Episodic Past or Other Problems Problem Classification Problem Date Documented Da te Episodic/Chronic Conditions associated with dizziness or vertigo (6 sources) Conditions associated with dizziness or vertigo External cause codes: Unspecified (20 sources) Accident; Translations: [Accident] 12-24-2018 Results Test Name Value Interpretation Reference Range Facil ity Vital Signs Date Time Vital Sign Value Performing Clinician Facility 03-08-2021 15:47-0400 Body height 160.02 cm Blaine Mae LPN [facility] Work Phone: 03-08-2021 15:47-0400 Body mass index (BMI) [Ratio] 29.77 kg/m2 Blaine Mae LPN [facility] Work Phone: 03-08-2021 15:47-0400 Body surface area Derived from formula 1.8 m2 Blaine Mae LPN [facility] Work Phone: 03-08-2021 15:47-0400 Body temperature 97.9 [degF] Blaine Mae LPN [facility] Work Phone: Encounters Encounter Date Encounter Type Care Provider Facility Start: 03-08-2021 End: 03-08-2021 Office outpatient visit 25 minutes Maria Antonia Horta [facility] Work Phone: [facility] Start: 07-09-2020 End: 07-09-2020 Annotation/Addendum Maria Antonia Tobias [facility] Start: 07-09-2020 End: 07-09-2020 Office outpatient visit 15 minutes Maria Antonia [facility] Start: 01-13-2020 End: 01-13-2020 Office outpatient visit 15 minutes Maria Antonia [facility] Start: 07-04-2019 End: 07-04-2019 Annotation/Addendum Maria Antonia [facility] Start: 06-10-2019 End: 06-10-2019 Office outpatient visit 25 minutes Maria Antonia [facility] Start: 06-10-2019 End: 06-10-2019 Preprocedural examination done Blaine Mae LPN [facility] Work Phone: Start: 05-20-2019 End: 05-20-2019 Office outpatient visit 5 minutes Maria Antonia [facility] Start: 12-25-2018 End: 12-25-2018 Annotation/Addendum Maria Antonia [facility] Start: 12-24-2018 End: 12-24-2018 Office outpatient visit 25 minutes Maria Antonia [facility] Start: 12-24-2018 End: 12-24-2018 Preprocedural examination done Maria Antonia Horta Work Phone: [facility] Start: 12-23-2018 Patient encounter procedure LOLIS FREED Facility:[facility] Start: 12-10-2018 Patient encounter procedure Maria Antonia [facility] Start: 01-18-2018 End: 01-18-2018 Office outpatient visit 25 minutes Maria Antonia [facility] Start: 01-04-2018 End: 01-04-2018 Office outpatient visit 15 minutes Maria Antonia [facility] Start: 12-27-2017 End: 12-27-2017 Office outpatient visit 15 minutes Maria Antonia [facility] Start: 04-10-2017 End: 04-10-2017 Annotation/Addendum Maria Antonia Tobias [facility] Start: 04-02-2017 End: 04-02-2017 Phone Encounter Maria Antonia Tobias [facility] Start: 03-30-2017 End: 03-30-2017 Office outpatient visit 15 minutes Maria Antonia [facility] Start: 03-09-2017 End: 03-09-2017 Office outpatient new 45 minutes Maria Antonia [facility] Start: 05-19-2013 End: 05-19-2013 Patient encounter procedure Maria Antonia [facility] Start: 05-12-2013 End: 05-12-2013 Phone Encounter Maria Antonia Tobias [facility] Start: 04-22-2013 End: 04-22-2013 Patient encounter procedure Maria Antonia [facility] Start: 08-05-2010 End: 08-05-2010 Patient encounter procedure Maria Antonia [facility] Start: 07-18-2010 End: 07-18-2010 Phone Encounter Maria Antonia [facility]ias [facility] Start: 04-15-2010 End: 04-15-2010 Patient encounter procedure Maria Antonia [facility] Start: 04-15-2010 End: 04-15-2010 Preprocedural examination done Maria Antonia Horta Work Phone: [facility] Start: 02-25-2010 End: 02-25-2010 Patient encounter procedure Maria Antonia Horta [facility] Start: 01-07-2010 End: 01-07-2010 Office outpatient visit 25 minutes Maria Antonia [facility] Start: 10-22-2009 End: 10-22-2009 Patient encounter procedure Maria Antonia Horta [facility] Start: 08-16-2007 End: 08-19-2007 Office outpatient visit 10 minutes Maria Antonia Horta [facility] Start: 08-15-2007 End: 08-15-2007 Nursing evaluation of patient and report Maria Antonia Horta [facility] Start: 08-05-2007 End: 08-05-2007 Office outpatient visit 15 minutes Maria Antonia Horta [facility] Start: 07-18-2007 End: 07-18-2007 Historical Summary Maria Antonia Horta [facility] Start: 07-17-2007 End: 07-17-2007 Patient encounter procedure Maria Antonia Horta [facility] Patient encounter procedure Blaine Mae LPN [facility] Work Phone: Patient encounter procedure Blaine Mae LPN [facility] Work Phone: Preprocedural examination done Blaine Mae LPN [facility] Work Phone: End: 05-19-2013 Preprocedural 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 [facility] Work Phone: Preprocedural examination done Blaine Mae LPN [facility] Work Phone: Procedures Date Procedure Procedure Detail Performing Clinician Start: 09-21-2022 End: 09-21-2022 Urgent Care Visit Report Procedure Note: See Note; NOTES: [facility] [address] [place] [address] [address] [place] [id number] OFFICE VISIT Date of Service: 09/21/22 MR#: [id number] Acct: [id number] Name: IRIS PABON Rep #: [id number] : 1960 Provider: KEVYN walton Age/Sex: 62/F Location[place] [facility] Status: Signed Intake Vital Signs 10/24/21 16:56 09/21/22 10:29 Height 5 ft 2 in 5 ft 1.5 in Weight: 155 lb 179 lb BMI 28.3 33.3 BP 148/73 H 120/84 H Blood Pressure Location Lt brachial Position Sitting Respiration 15 18 Pulse 68 89 Pulse Source Monitor Temp 96.8 F L 98.6 F Temp Source Temporal Temporal Pulse Oximetry (%) 97 95 Oxygen Delivery Method room air Intake Visit Reasons: Sinus infection Chief Complaint: Sinus congestion Allergies No Known Allergies Allergy (Verified 09/21/22 10:30) Medications amlodipine 10 mg tablet 10 mg PO DAILY 30 days #30 tabs 03/02/21 [Rx Confirmed 09/21/22] aspirin 81 mg tablet,delayed release (Serge Low Dose Aspirin) 81 mg PO DAILY 30 days #30 tabs 03/02/21 [Rx Confirmed 09/21/22] ondansetron 4 mg disintegrating tablet 4 mg PO Q6H PRN nausea and vomiting #10 tabs 10/24/21 [Rx Confirmed 09/21/22] methylprednisolone 4 mg tablets in a dose pack (Medrol (Edwardo)) See Rx Instructions PO PER PKG DIR #21 tabs 09/21/22 [Rx Confirmed 09/21/22] PFSH Medical History (Updated 09/21/22 @ 11:00 by Dakota BAGLEY, PA) Acute sinusitis, unspecified Kidney stones Non-smoker Osteoporosis URI (upper respiratory infection) Social History Smoking Status: Never smoker HPI HPI Chief Complaint: Sinus congestion Details: IRIS PABON, is a 62 F who presents to the office today for initial evaluation 2 to 3-day history of mild sinus congestion/pressure with clear rhinorrhea and clear postnasal drip. No complaints of fever, chills, sweats, cough, headache, myalgias, fatigue, sore throat/loss of taste/smell, or nausea/vomiting/diarrhea. Non-smoker. No close contacts with similar complaints. No [id number] products taken to assist. No other associated symptoms and no alleviating/aggravating factors. ROS Const Constitutional: No other (As above) Exam Const General: cooperative, healthy appearing and no acute distress Orientation: alert, awake and oriented x3 HENMT Head: normal to inspection Ears: hearing grossly normal bilaterally, external ears normal, TM's normal bilaterally and EAC's normal Nose: external nose normal, nares normal, septum normal and nasal discharge clear Face and sinus: abnormal facial exam, sinuses tender and face asymmetric Mouth: oral mucosae normal, lip normal, tongue normal and oropharynx normal Throat: posterior oropharynx normal, tonsils normal, uvula midline and postnasal drainage (Clear) Eyes General: appearance normal, both eyes and all related structures Neck Neck: normal visual inspection, full ROM, no lymphadenopathy, no meningeal signs and supple Neck mass: No Thyroid: thyroid normal Lymphatic: no lymphadenopathy noted Chest Chest palpation inspection: normal inspection of the chest Resp Effort Inspection: normal respiratory effort and able to speak in complete sentences Auscultation: Bilateral: Clear to Auscultation Cardio Palpation: normal PMI Rate: regular rate Rhythm: regular rhythm Heart Sounds: S1 normal, S2 normal, no gallops, no murmurs and no rubs Pulses: radial pulses present GI Inspection: normal to inspection Palpation: soft and no hepatosplenomegaly Skin General: no rashes or lesions noted Neuro General: patient alert, patient awake and patient oriented x3 Cognition: normal cognition Speech: speech normal Psych Appearance: grossly normal Mental Status: mental status grossly normal Mood: congruent mood Affect: normal affect Speech and Movement: speech and movement normal Attitude: cooperative Thought Process: normal Thought Content: normal Judgment: judgment good Coding Level of Care Code Off vis,new,level 3 Diagnoses URI (upper respiratory infection) J06.9 Acute sinusitis, unspecified J01.90 Assessment and Plan Assessment and Plan (1) URI (upper respiratory infection): Status: Acute (2) Acute sinusitis, unspecified: Status: Acute Plan: Examination findings were reviewed with patient in office today. Medrol Dosepak as prescribed today. Supportive measures as instructed today. Follow-up with PCP in 5 to 7 days should symptoms not improve, sooner should symptoms only worsen or any other concerns develop. Patient states acknowledging understanding all the above. This note was generated with Commissioneration software. It may contain incorrect words, spelling, and punctuation that were not noted in checking the note before signing. Medications: New methylprednisolone (Medrol (Edwardo)) PO PER PKG DIR 21 tabs 0RF 09/21/22 1101 <Electronically signed by Dakota BAGLEY> Date Dakota Galvez Signature: Date (if applicable) CC: Maria Antonia Horta Work Phone: Start: 10-24-2021 End: 10-24-2021 Emergency Department Summary Procedure Note: See Note; NOTES: [facility] Medical Records Department [address] [place] [id number] Emergency Department Summary 10/24/21 MR#: [id number] Acct: [id number] Name: IRIS PABON Rep #: [id number] : 1960 61 From: Steve Hastings PCP: Dr. Isabel Palmer DO Status:DEP ER Location: ED HPI History of Present Illness Chief Complaint: Cold Sx Informant: patient Narrative Narrative: 2-week history of postnasal drainage. Cough started 2 days ago due to postnasal drip. Denies asthma or COPD. No fevers or headache. No vomiting or diarrhea. No loss of taste or smell. Nonvaccinated for Covid. Denies sick contacts. States nausea due to coughing sensations. Seasonal allergies is on Claritin daily. Prior similar symptoms: Yes PFSH PFSH Medical History Kidney stones Non-smoker Osteoporosis Home Medications amlodipine 10 mg PO DAILY 30 Days #30 tab 03/02/21 [Rx Last Taken Unknown] aspirin [Aspirin Low Dose] 81 mg PO DAILY 30 Days #30 tab 03/02/21 [Rx Last Taken Unknown] azithromycin 250 mg PO DAILY #4 tab 10/24/21 [Rx Last Taken Unknown] ondansetron 4 mg PO Q6H PRN #10 tab 10/24/21 [Rx Last Taken Unknown] Allergy/AdvReac Type Severity Reaction Status Date / Time No Known Allergies Allergy Verified 03/02/21 00:46 Social History Smoking Status: Never smoker ROS ROS ED Constitutional Constitutional ED: Denies chills, fever(s) or sweats Eyes Eyes: Denies change in vision ENT ENT ED: Reports other Details: Sinus congestion with postnasal drainage ; Denies dysphagia or sore throat Cardiovascular Cardiovascular: Denies chest pain, leg edema, palpitations or racing heartbeat Respiratory/Chest Respiratory/Chest: Reports cough; Denies dyspnea or dyspnea on exertion Gastrointestinal Gastrointestinal: Denies abdominal pain, diarrhea, nausea or vomiting Genitourinary Genitourinary ED: Denies dysuria, hematuria or urinary frequency Musculoskeletal Musculoskeletal: Denies back pain, extremity pain or neck pain Integumentary Denies rash or wounds Neurologic Neurologic: Denies headache(s), paresthesias or weakness EXAM Physical Exam Const Vital Signs: 10/24/21 16:56 10/24/21 17:43 Temperature 96.8 F L Temperature Source Temporal Pulse Rate 68 Respiratory Rate 15 Respiratory Pattern Tachypnea Blood Pressure 148/73 H Blood Pressure Mean 98 Pulse Ox 97 Oxygen Delivery Method Room Air Positive well nourished and well developed Constitutional Narrative: Occasional coughing exam. General Appearance ED: well developed and NAD HEENT Reports TM's clear and moist mucous membranes HEENT Narrative: Clear rhinorrhea no swollen turbinates. normocephalic and atraumatic Tympanic Membrane ED: Yes TM's clear Eyes PERRL, EOMs intact bilaterally and conjunctivae normal General Eye ED: Yes normal appearance of both eyes Neck no lymphadenopathy and supple General: Negative for tenderness Chest Wall Chest: Negative for tenderness Resp normal respiratory effort and normal air movement Effort and Inspection: symmetric chest movement; Negative for respiratory distress Cardio regular rate, regular rhythm and no murmurs Peripheral Pulses: pulses 2+ throughout GI normal to inspection, nondistended, normoactive bowel sounds and non-tender Palpation: Negative for guarding or rebound tenderness present Back/Spine no CVA tenderness and no thoracic nor lumbar tenderness Extremity normal to inspection General Extremety ED: Negative for edema or tenderness General Extremity: Negative for edema Neuro oriented x3 and no sensory deficits noted Sensorium / Orientation: awake and alert Skin no rashes or lesions noted and no wounds MDM MDM MDM Narrative Medical decision making narrative: Vital stable pulse ox 97%. 2 weeks congestion symptoms with start of a cough. Afebrile. She has no other symptoms for concerning Covid except for sinus congestion with 2 weeks of symptoms. With worsening symptoms now with a cough discussed antibiotic treatment for which she agrees. Zithromax started. She given Zofran for nausea. First dose in the ED prescription sent to her pharmacy. Return precautions discussed otherwise follow-up with her PCP. All questions were answered. Discharge Plan Triage Chief Complaint: Cold Sx ED Provider: Steve Mayo Dx/Rx/DC Orders Clinical Impression: Sinusitis, URI (upper respiratory infection) Instructions: ED Upper Resp Infec Abx Tx, ED Sinusitis (Antibiotic Treatment) Prescriptions: New azithromycin [azithromycin] 250 MG tablet 250 mg PO DAILY Qty: 4 RF: 0 ondansetron 4 mg tablet,disintegrating 4 mg PO Q6H PRN (Reason: nausea and vomiting) Qty: 10 RF: 0 No Action amlodipine 10 mg Tablet 10 mg PO DAILY 30 Days Qty: 30 RF: 0 aspirin [Aspirin Low Dose] 81 mg tablet,delayed release (DR/EC) 81 mg PO DAILY 30 Days Qty: 30 RF: 0 Primary Care Provider: Isabel Palmer Referrals: Isabel Palmer DO [Primary Care Provider] - 5-7 Days Disposition Disposition: Home, Self Care Discharge Date/Time: 10/24/21 17:46 What to do if you have Problems For any increased pain, shortness of breath, bleeding, nausea or vomiting, chest pain, or any unexpected problems, contact your Primary Care Provider. Call [facility] ([phone]) or report to the closest Emergency Room. Call 911 if necessary. 10/24/212142 <Electronically signed by Steve Hastings> Cosigner Signature (if applicable): CC: Dr. Isabel Palmer DO Signed Maria Antonia Horta Work Phone: Start: 04-19-2021 End: 04-19-2021 Esophagus Dual Contrast Comments: See Note; NOTES: [facility] Imaging Services [address] [place] [address] Esophagus Dual Contrast MR#: [id number] Acct: [id number] Name: IRIS PABON Rep #: [id number] : 1960 F 61 From: Bean Mcrae MD PCP: Dr. Isabel Palmer, DO Status: REG CLI Study: Esophagus Dual Contrast Date of Exam: 04/19/21 Exam# [id number] Ordering Dr: Ned Fisher MD Exam: Double contrasted esophagram. Indication: 68-year-old female presenting with dysphagia. Technique: Standard esophagram with barium and effervescent capsules. Fluoroscopy time: 2:05 minutes/seconds. Findings: Unremarkable oropharyngeal phase of swallowing, unremarkable transit of the contrast bolus into the esophagus. Unremarkable transit of the contrast bolus through the esophagus. Irregularity and contractility of the esophagus is visualized, there is delayed transit visualized through the gastroesophageal junction visualized secondary to a 1.3 cm segment of the narrowing visualized in the gastroesophageal junction that delays transit but eventually slightly (, findings suggestive of for irregular circumferential thickening along the wall of the gastroesophageal junction would recommend further evaluation with either endoscopy or CT scan. No evidence of esophageal diverticula is visualized. No evidence of gastroesophageal reflux. RAD/Esophagus Dual Contrast IMPRESSION: 1.3 segment at the gastroesophageal junction demonstrates severe circumferential thickening would recommend further evaluation to rule out a mass. Electronically Signed: Bean Mcrae MD at 12:38 EDT Tel , Service support , CC: Dr. Isabel Palmer DO; Dr. Ned Fisher MD Substance Abuse Counselor: Signed Brianna Culver MD Work Phone: Start: 03-02-2021 End: 03-02-2021 Emergency Department Summary Comments: See Note; NOTES: [facility] Medical Records Department [address] [place] [address] Emergency Department Summary 03/02/21 MR#: [id number] Acct: [id number] Name: IRIS PABON Rep #: [id number] : 1960 61 From: Caprice Bull MD PCP: Dr. Isabel Palmer, DO Status:REG ER Location: ED HPI History of Present Illness Chief Complaint: Other, Pain/Inj Informant: patient Onset/Context/Timing Onset: Today Current Severity: Moderate Maximum Severity: Severe Narrative Narrative: 61-year-old female presenting with chest pain. She states that she began having pain in her mid back which then radiated to her chest. She states the pain then went down both arms. She had associated nausea and diaphoresis with this. She states initially pain was 10 out of 10, currently 4 out of 10. She has a family history of heart disease. She is not a smoker. No PE/DVT risk factors. Prior similar symptoms: No Recent Illness/Hospitalization: No PFSH PFSH Home Medications NK 03/02/21 [History Last Taken Unknown] Allergy/AdvReac Type Severity Reaction Status Date / Time No Known Allergies Allergy Verified 03/02/21 00:46 Social History Smoking Status: Never smoker ROS ROS ED Constitutional Constitutional ED: Denies fever(s) Eyes Eyes: Denies change in vision ENT ENT ED: Denies rhinorrhea or sore throat Cardiovascular Cardiovascular: Reports chest pain; Denies palpitations Respiratory/Chest Respiratory/Chest: Denies cough or dyspnea Gastrointestinal Gastrointestinal: Reports nausea; Denies abdominal pain, diarrhea or vomiting Genitourinary Genitourinary ED: Denies dysuria Musculoskeletal Musculoskeletal: Reports back pain; Denies myalgias Integumentary Denies rash Neurologic Neurologic: Denies headache(s) Psychiatric Psychiatric: Denies suicidal thoughts EXAM Physical Exam Const Vital Signs: 03/02/21 00:40 03/02/21 00:46 03/02/21 01:08 Temperature 97.7 F L Temperature Source Oral Pulse Rate 73 Respiratory Rate 18 Respiratory Effort Normal Non-Labored Respiratory Pattern Normal Blood Pressure 186/92 H Blood Pressure Mean 123 Pulse Ox 96 Oxygen Delivery Method Room Air Room Air 03/02/21 03:23 Temperature Temperature Source Pulse Rate Respiratory Rate 16 Respiratory Effort Respiratory Pattern Blood Pressure Blood Pressure Mean Pulse Ox Oxygen Delivery Method Positive well nourished and well developed General Appearance ED: well developed HEENT Reports normocephalic and head/scalp atraumatic Eyes PERRL and EOMs intact bilaterally Neck supple General: Negative for tenderness Chest Wall inspection of chest normal Resp normal respiratory effort and clear to auscultation bilaterally Cardio regular rate and regular rhythm GI non-tender and non-distended Palpation: soft; Negative for guarding or rebound tenderness present no CVA tenderness Extremity normal to inspection Neuro oriented x3 Sensorium / Orientation: alert Psych mental status grossly normal MDM MDM MDM Narrative Medical decision making narrative: Patient was given aspirin on arrival. EKG is sinus rhythm rate of 61 with no acute ischemic changes. On reevaluation patient is chest pain-free. Her heart score is 4. Discussed with hospitalist for observation. Lab Data Attestation: I reviewed the patient's lab results. Labs: Laboratory Results - last 24 hr 03/02/21 03/02/21 01:05 01:05 WBC 6.3 RBC 4.70 Hgb 13.7 Hct 42.0 MCV 89.4 MCH 29.1 MCHC 32.6 RDW Std Deviation 44.2 H RDW Coeff of Melva 13.4 Plt Count 225 MPV 11.3 Immature Gran % (Auto) 0.300 Neut % (Auto) 49.4 Lymph % (Auto) 35.3 [place] % (Auto) 9.4 Eos % (Auto) 4.8 Baso % (Auto) 0.8 Absolute Neuts (auto) 3.1 Absolute Lymphs (auto) 2.23 Nucleated RBC % 0 Sodium 137 Potassium 3.6 Chloride 107 Carbon Dioxide 26.0 Anion Gap 4 L BUN 29 H Creatinine 0.76 Estim Creat Clear Calc 60.70 Est GFR (MDRD) Af Amer 99 Est GFR (MDRD) Non-Af 82 BUN/Creatinine Ratio 38.0 H Glucose 100 Calcium 8.7 Troponin I High Sens 39.0 Radiography Diagnostic Testing: Radiology Impression Chest CTA 03/02/21 01:00 IMPRESSION: Negative CTA chest examination, without a demonstrated pulmonary embolism or arterial dissection. Minimal posterior dependent/lower lobe atelectasis otherwise no acute cardiopulmonary process. Hiatal hernia versus thickening of distal esophageal wall. If indicated, this may be further assessed with upper endoscopy. Electronically Signed: Elsi De León MD at 2:39 EDT , Service support , EKG Initial EKG: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 swelling/inflammation, To increase ROM, To increase oxygenation perfusion, To improve muscle performance and motor function, To improve ability to perform ADL's, To increase tolerance to activity/condition/position, To improve performance and independence with ADL's, To improve ability of physical actions for home/ community/work/leisure, To increase flexibility/ROM Therapeutic Exercise to Include: Strength training, Body mechanics, Postural training, Flexibilty training, Passive ROM, Active ROM, Dynamic Lumbar Stabilization For the Purpose of:: To decrease pain, To decrease swelling/inflammation, To increase ROM, To improve muscle performance and motor function, To improve ability of physical actions for home/ community/work/leisure, To decrease soft tissue restriction, To increase flexibility/ROM IF ES: Yes Cryotherapy (ice pack, ice massage): Yes Thermo therapy (hot pack): Yes Ultrasound (thermal/non thermal): Yes For the Purpose of:: To decrease pain, To decrease swelling/inflammation, To increase ROM, To improve nutrient delivery to tissue, To improve muscle performance and motor function Thank you for the opportunity to evaluate your patient. For Medicare and Medicare HMO plans, please review the plan of care and approve it. It will need to be FAXED BACK to us at [phone] for Medicare purposes. Please let me know if there are questions or concerns regarding this plan of care. Physician Signature: _Date: <Electronically signed by Marya Telles MPT> 03/13/17 1650 CC: Maria Antonia Horta Signed For Medicare only, by signing this I certify the plan of care. Physicians Signature Date Maria Antonia Horta Start: 03-09-2017 End: 03-09-2017 Hip 2-3 Views with Pelvis Comments: See Note; NOTES: [facility] Imaging Services [address] [place] [address] Verdastorm 4d Hip 2-3 Views with Pelvis MR#: [id number] Acct: [id number] Name: IRIS PABON Rep #: [id number] : 1960 F 57 From: Sarthak Shafer MD PCP: Brianna Culver MD Status: REG CLI Study: Hip 2-3 Views with Pelvis Date of Exam: 03/09/17 Exam# [id number] Ordering Dr: Maria Antonia Horta STUDY: X-RAY - PELVIS AND LEFT HIP REASON FOR EXAM: Female, 57 years old. Bilateral hip pain TECHNIQUE: Radiological exam, hip, unilateral, with pelvis when performed; 2 or 3 views. COMPARISON: None. FINDINGS: There is a non-specific bowel gas pattern. Normal visualized soft tissue structures. Normal bilateral iliac wings, sacroiliac joints and visualized sacrum. Normal bilateral superior and inferior pubic rami. Normal pubic symphysis. Normal bilateral ischial tuberosities. Normal visualized femoral head. Normal acetabulum. Normal hip joint. RAD/Hip 2-3 Views with Pelvis IMPRESSION: Normal x-ray examination of the pelvis and hip. Electronically Signed: Sarthak Shafer MD at 17:42 EDT , Service support , CC: Maria Antonia Horta; Brianna Culver MD Substance Abuse Counselor: Signed Maria Antonia Horta Work Phone: Start: 03-09-2017 End: 03-09-2017 L/S Spine Min 4 Views Comments: See Note; NOTES: [facility] Imaging Services [address] [place] [address] Verdana 4d L/S Spine Min 4 Views MR#: [id number] Acct: [id number] Name: IRIS PABON Rep #: [id number] : 1960 F 57 From: Sarthak Shafer MD PCP: Brianna Culver MD Status: REG CLI Study: L/S Spine Min 4 Views Date of Exam: 03/09/17 Exam# [id number] Ordering Dr: Maria Antonia Horta STUDY: X-RAY - LUMBAR SPINE REASON FOR EXAM: Female, 57 years old. Low back pain TECHNIQUE: 5 view(s) of the lumbar spine were obtained. COMPARISON: None FINDINGS: Normal lumbar lordosis. There is no substantial scoliosis. There is a normal alignment of the vertebrae. There is mild compression deformity of the superior endplate of L1. This is of indeterminate age. Normal disc space heights. There is no evidence of spondylolysis or spondylolisthesis. The soft tissue structures are unremarkable. RAD/L/S Spine Min 4 Views IMPRESSION: Mild compression deformity of the superior endplate of L1, which is of indeterminate age. Disc spacing is preserved. The spinous processes, pedicles, and transverse processes are intact. Electronically Signed: Sarthak Shafer MD at 20:09 EDT , Service support , CC: Maria Antonia Horta; Brianna Culver MD Substance Abuse Counselor: Signed Kimberly Mychal Work Phone: Start: 07-01-2013 End: 07-01-2013 OT Discharge Summary Comments: See Note; NOTES: [facility] Occupational Therapy [address] [place], [place] [id number] Fax REHABILITATION SERVICES DISCHARGE SUMMARY MR#: [id number] Acct: [id number] Name: IRIS PABON Rep #: [id number] : 1960 53 From: Sammie Peterson Referring Dr.: Brianna Culver MD Status: DIS RCR Eval Date: Discharge Date: 06/19/13 DATE OF SERVICE: Iris's initial occupational therapy evaluation occurred on May 23, 2013. She was referred by Dr. Brianna Culver with a diagnosis of left ring finger tuft fracture. The patient was seen in our outpatient occupational therapy clinic for 2 visits to address left ring finger pain, decreased left ring finger range of motion, decreased left hand strength, left ring finger edema and decreased independence with ADLs, IADLs and leisure/work activities. Treatment methods included pain management, edema control, active/passive range of motion exercises and stretch, desensitization and progressive resistive exercises. The patient progressed well in her therapy sessions. She achieved left ring finger PIP flexion 65 degrees, left DIP flexion 20 degrees. The patient stated after her second visit that she would like to continue with her home exercise program and discontinue therapy sessions. Therefore, the patient will be discharged from occupational therapy with continuation of her home exercise program. Sammie Peterson, OTR/L T: NTS JOB: [id number] <Electronically signed by Sammie Peterson > 07/01/13 1144 CC: * Signed Brianna Culver Work Phone: Start: 05-26-2013 End: 05-28-2013 OT Letter Comments: See Note; NOTES: [facility] [address] [place], [place] [id number] Fax Brianna Culver MD [address] [place] [address] Culver, I had the pleasure of meeting and evaluating Iris in Occupational Therapy on May 23, 2013. She presents with left ring finger tuft. Currently, she is limited with pain, edema, range of motion, strength, and hypersensitivity. Therapy will manage her pain, edema, and hypersensitivity and provide occupations to challenge range of motion and strength deficits. I plan to see Iris in Occupational Therapy approximately 1-2 times a week for 2-3 weeks. A home exercise program will also be designed to increase her functional abilities. If you have any questions or concerns regarding this plan of care, please feel free to contact me at [phone]. Thank for the opportunity to participate in the care of your patient. Sincerely, Sammie Peterson OTR/L T: SASKIA JOB: [id number] CC: Brianna Culver Work Phone: Start: 05-26-2013 End: 05-28-2013 Initial Evaluation - OT Comments: See Note; NOTES: [facility] Occupational Therapy [facility] [address] [place] [address] Fax REHABILITATION SERVICES INITIAL EVALUATION MR#: [id number] Acct: [id number] Name: IRIS PABON Rep #: [id number] : 1960 53 From: Sammie Peterson Referring DrRusty: Brianna Culver MD Status: REG R Insurance: GRACIE Conroy Date: DATE OF SERVICE: 05/23/2013 REASON FOR VISIT: This 53-year-old female was seen for her initial occupational therapy evaluation on May 23, 2013. She was referred by Dr. Brianna Culver with a diagnosis of left finger tuft. SUBJECTIVE: The patient states her date of injury occurred on April 08, 2013 when she was log splitting and a log accidentally fell on her hand, injuring her left middle, ring, and small finger. She proceeded to the Emergency Room the following day where x-rays determined that the tip of the ring finger was fractured. She was splinted with wrist involved for about 2 days, and then placed in a ring finger protective splint until Sunday. X-rays were again obtained, in which it has not fully healed. MEDICATIONS: The patient is on no pain medications at this time. PAST MEDICAL HISTORY: She does not have a significant past medical history. 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 ACTIVITIES OF DAILY LIVING: The patient states she is having difficulties with performing functional activities. She states it is difficult sorting money during work. Also, gripping the stirring wheel is a challenge. Lifting heavy objects is also painful. PAIN LEVEL: The patient reports at rest, her pain is 0/10, but with active range of motion, her pain is 3-4/10 level in her left hand. She describes the pain as an ache. OBSERVATION: The patient is demonstrating with edema in the left ring finger as well as a healing nail bed. OBJECTIVE: Right ring MCP flexion 90 degrees, left 75 degrees. Right ring PIP flexion 95 degrees, left 70 degrees. Right ring DIP flexion 50 degrees, left 15 degrees. Education Associate strength - right 52 pounds, left 37 pounds. Lateral pinch - right 13 pounds, left 13 pounds. Tripod pinch - right 14 pounds, left 15 pounds. EDEMA MEASUREMENTS: Right ring PIP 4.7 cm, left 5.0 cm. FINE MOTOR: The patient is right-hand dominant. SENSATION: The patient reports no numbness or tingling; however, she is hypersensitive at the tip of her left ring finger. PROBLEMS: 1. Left ring finger pain. 2. Decreased left ring finger range of motion. 3. Decreased left hand strength. 4. Left ring finger edema. 5. Decreased independence with ADLs, IADLs, and leisure/work activities. ASSESSMENT: The patient presents with a need for outpatient occupational therapy services due to the above-mentioned problems. The patient presents with excellent rehabilitation potential. GOALS: 1. The patient will demonstrate with an increase in left ring finger range of motion equal to right to sort coins by discharge. 2. The patient will demonstrate with a decrease in left ring finger edema by 0.5 cm to form a composite fist to medical service representative stirring wheel by discharge. 3. The patient will demonstrate with an increase in left medical service representative strength to 48 pounds to lift pots and pans while cooking by discharge. 4. The patient will report left ring finger pain no greater than 0-1/10 during functional activities by discharge. 5. The patient will report complete independence performing her ADLs, IADLs, and leisure/work activities by discharge. PLAN: I plan to see this patient approximately 1-2 times a week for 2-3 weeks. Treatment methods will include, but not be limited to, pain management, edema control, active/passive range of motion exercises and stretch, desensitization techniques , and progressive resistive exercises. Modalities such as moist heat, ice, and fluidotherapy will be utilized. A home exercise program will be designed to increase the patient's functional abilities. Sammie Peterson, OTR/L T: SASKIA JOB: [id number] <Electronically signed by Sammie Peterson > 05/26/13 1206 CC: Signed For Medicare only, by signing this I certify the plan of care. Physicians Signature Date Brianna Culver Work Phone: Start: 05-23-2013 End: 05-28-2013 OT Letter Comments: See Note; NOTES: [address] [place] [address] Fax Brianna Culver MD [address] [place] [address]., [address] [place] [address] Culver, I had the pleasure of meeting and evaluating Iris in Occupational Therapy on May 23, 2013. She presents with left ring finger tuft. Currently, she is limited with pain, edema, range of motion, strength, and hypersensitivity. Therapy will manage her pain, edema, and hypersensitivity and provide occupations to challenge range of motion and strength deficits. I plan to see Iris in Occupational Therapy approximately 1-2 times a week for 2- 3 weeks. A home exercise program will also be designed to increase her functional abilities. If you have any questions or concerns regarding this plan of care, please feel free to contact me at [phone]. Thank for the opportunity to participate in the care of your patient. Sincerely, Sammie Peterson, OTR/L T: SASKIA JOB: [id number] CC: Brianna Culver Work Phone: Start: 05-23-2013 End: 05-28-2013 Initial Evaluation - OT Comments: See Note; NOTES: [facility] Occupational Therapy [facility] [address] [place] [address] Fax REHABILITATION SERVICES INITIAL EVALUATION MR#: [id number] Acct: [id number] Name: IRIS PABON Rep #: [id number] : 1960 53 From: Sammie Peterson Referring Dr.: Brianna Cuvler MD Status: REG [facility] Insurance: [employer] Date: DATE OF SERVICE: 05/23/2013 REASON FOR VISIT: This 53-year-old female was seen for her initial occupational therapy evaluation on May 23, 2013. She was referred by Dr. Brianna Culver with a diagnosis of left finger tuft. SUBJECTIVE: The patient states her date of injury occurred on April 08, 2013 when she was log splitting and a log accidentally fell on her hand, injuring her left middle, ring, and small finger. She proceeded to the Emergency Room the following day where x-rays determined that the tip of the ring finger was fractured. She was splinted with wrist involved for about 2 days, and then placed in a ring finger protective splint until Sunday. X-rays were again obtained, in which it has not fully healed. MEDICATIONS: The patient is on no pain medications at this time. PAST MEDICAL HISTORY: She does not have a significant past medical history. 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 ACTIVITIES OF DAILY LIVING: The patient states she is having difficulties with performing functional activities. She states it is difficult sorting money during work. Also, gripping the stirring wheel is a challenge. Lifting heavy objects is also painful. PAIN LEVEL: The patient reports at rest, her pain is 0/10, but with active range of motion, her pain is 3-4/10 level in her left hand. She describes the pain as an ache. OBSERVATION: The patient is demonstrating with edema in the left ring finger as well as a healing nail bed. OBJECTIVE: Right ring MCP flexion 90 degrees, left 75 degrees. Right ring PIP flexion 95 degrees, left 70 degrees. Right ring DIP flexion 50 degrees, left 15 degrees. Education Associate strength - right 52 pounds, left 37 pounds. Lateral pinch - right 13 pounds, left 13 pounds. Tripod pinch - right 14 pounds, left 15 pounds. EDEMA MEASUREMENTS: Right ring PIP 4.7 cm, left 5.0 cm. FINE MOTOR: The patient is right-hand dominant. SENSATION: The patient reports no numbness or tingling; however, she is hypersensitive at the tip of her left ring finger. PROBLEMS: 1. Left ring finger pain. 2. Decreased left ring finger range of motion. 3. Decreased left hand strength. 4. Left ring finger edema. 5. Decreased independence with ADLs, IADLs, and leisure/work activities. ASSESSMENT: The patient presents with a need for outpatient occupational therapy services due to the above-mentioned problems. The patient presents with excellent rehabilitation potential. GOALS: 1. The patient will demonstrate with an increase in left ring finger range of motion equal to right to sort coins by discharge. 2. The patient will demonstrate with decrease in left ring finger edema by 0.5 cm to form a composite fist to medical service representative stirring wheel by discharge. 3. The patient will demonstrate with an increase in left medical service representative strength to 48 pounds to lift pots and pans while cooking by discharge. 4. The patient will report left ring finger pain no greater than 0-1/10 during functional activities by discharge. 5. The patient will report complete independence performing her ADLs, IADLs, and leisure/work activities by discharge. PLAN: I plan to see this patient approximately 1-2 times a week for 2-3 weeks. Treatment methods will include, but not be limited to, pain management, edema control, active/passive range of motion exercises and stretch, desensitization techniques, and progressive resistive exercises. Modalities such as moist heat, ice, and fluidotherapy will be utilized. A home exercise program will be designed to increase the patient's functional abilities. CHARLES Sanches/Alma T: SASKIA JOB: [id number] CC: Draft For Medicare only, by signing this I certify the plan of care. Physicians Signature Date Brianna Culver Work Phone: [facility] Plan of Treatment Date Care Activity Detail Author Start: 03-08-2021 Procedure Education Eprescribed prescriptions (G8553) [facility]; [facility] Work Phone: Start: 03-08-2021 Provider Instructions for Treatment Follow up - Make appt after diagnostic tests [facility] Work Phone: Start: 07-09-2020 Procedure Education Eprescribed prescriptions (G8553) [facility] Work Phone: Start: 07-09-2020 Provider Instructions for Treatment [facility] Work Phone: Start: 01-13-2020 Procedure Education Eprescribed prescriptions (G8553) [facility] Work Phone: Start: 01-13-2020 Provider Instructions for Treatment Follow up if no improvement or if symptoms worsen [facility] Work Phone: Start: 06-10-2019 Procedure Education Eprescribed prescriptions (G8553) [facility] Work Phone: Start: 06-10-2019 Provider Instructions for Treatment [facility] Work Phone: Start: 12-24-2018 aPTT Coag time (Bld) PTT (ACTIVATED PARTIAL THROMBOPLASTIN TIME) (06784) [facility] Work Phone: Start: 12-24-2018 Thromboplastin time partial plasma/whole blood PTT (ACTIVATED PARTIAL THROMBOPLASTIN TIME) (07132) [facility]; [facility] Work Phone: Start: 12-24-2018 Procedure Education Eprescribed prescriptions (G8553) [facility] Work Phone: Start: 01-18-2018 Procedure Education Eprescribed prescriptions (G8553) [facility] Work Phone: Start: 01-18-2018 Provider Instructions for Treatment [facility] Work Phone: Start: 01-04-2018 Procedure Education Eprescribed prescriptions (G8553) [facility] Work Phone: Start: 01-04-2018 Provider Instructions for Treatment [facility] Work Phone: Start: 12-27-2017 Procedure Education Eprescribed prescriptions (G8553) [facility] Work Phone: Start: 12-27-2017 Provider Instructions for Treatment Follow up in 1 week [facility] Work Phone: Start: 03-30-2017 Procedure Education Eprescribed prescriptions (G8553) [facility] Work Phone: Start: 03-30-2017 Provider Instructions for Treatment [facility] Work Phone: Start: 03-09-2017 Procedure Education Eprescribed prescriptions (G8553) [facility] Work Phone: Start: 03-09-2017 Provider Instructions for Treatment [facility] Work Phone: Start: 08-05-2010 Provider Instructions for Treatment [facility] Work Phone: Start: 08-05-2010 Cytp cerv/vag auto thin layer prep mnl screen Thin prep Pap (58805) [facility] Work Phone: Start: 01-07-2010 Patient Education Kidney Stones *: kidney stones [facility] Work Phone: Start: 08-05-2007 Hepatic function panel HEPATIC FUNCTION PANEL (61047) [facility] Work Phone: Payers Date Payer Category Payer Unknown [id number] 2002 Unknown [id number] 1960 Unknown [id number] 1960 Unknown [id number] Unknown Gracie BC/BS Social History Date Type Detail Facility [employer]affe[employer] Use [facility] Work Phone: Instructions Note Date & Type Note Facility [facility] Work Phone: Instructions Note Date & Type Note Facility [facility] Work Phone: Instructions Note Date & Type Note Facility [facility] Work Phone: Summary Purpose Family History Unknown Family Member Name Dates Details Brother 1 Comments:skin cancer Status:Active Brother 2 Comments:HTN Status:Active Father Comments:pacemaker, CAD/PTCA --80's Status:Active Mother Comments:HTN, hypercholester olemia, CVA. arthritis Status:Active Unknown Family Member Name Dates Details Brother 1 Comments:skin cancer Status:Active Brother 2 Comments:HTN Status:Active Father Comments:pacemaker, CAD/PTCA --80's Status:Active Mother Comments:HTN, hypercholester olemia, CVA. arthritis Status:Active Unknown Family Member Name Dates Details Brother 1 Comments:skin cancer Status:Active Brother 2 Comments:HTN Status:Active Father Comments:pacemaker, CAD/PTCA --80's Status:Active Mother Comments:HTN, hypercholester olemia, CVA. arthritis Status:Active Unknown Family Member Name Dates Details Brother 1 Comments:skin cancer Status:Active Brother 2 Comments:HTN Status:Active Father Comments:pacemaker, CAD/PTCA --80's Status:Active Mother Comments:HTN, hypercholester olemia, CVA. arthritis Status:Active Unknown Family Member Name Dates Details Brother 1 Comments:skin cancer Status:Active Brother 2 Comments:HTN Status:Active Father Comments:pacemaker, CAD/PTCA --80's Status:Active Mother Comments:HTN, hypercholester olemia, CVA. arthritis Status:Active Unknown Family Member Name Dates Details Brother 1 Comments:skin cancer Status:Active Brother 2 Comments:HTN Status:Active Father Comments:pacemaker, CAD/PTCA --80's Status:Active Mother Comments:HTN, hypercholester olemia, CVA. arthritis Status:Active Unknown Family Member Name Dates Details Brother 1 Comments:skin cancer Status:Active Brother 2 Comments:HTN Status:Active Father Comments:pacemaker, CAD/PTCA --80's Status:Active Mother Comments:HTN, hypercholester olemia, CVA. arthritis Status:Active Unknown Family Member Name Dates Details Brother 1 Comments:skin cancer Status:Active Brother 2 Comments:HTN Status:Active Father Comments:pacemaker, CAD/PTCA --80's Status:Active Mother Comments:HTN, hypercholester olemia, CVA. arthritis Status:Active Unknown Family Member Name Dates Details Brother 1 Comments:skin cancer Status:Active Brother 2 Comments:HTN Status:Active Father Comments:pacemaker, CAD/PTCA --80's Status:Active Mother Comments:HTN, hypercholester olemia, CVA. arthritis Status:Active Unknown Family Member Name Dates Details Brother 1 Comments:skin cancer Status:Active Brother 2 Comments:HTN Status:Active Father Comments:pacemaker, CAD/PTCA --80's Status:Active Mother Comments:HTN, hypercholester olemia, CVA. arthritis Status:Active Unknown Family Member Name Dates Details Brother 1 Comments:skin cancer Status:Active Brother 2 Comments:HTN Status:Active Father Comments:pacemaker, CAD/PTCA --80's Status:Active Mother Comments:HTN, hypercholester olemia, CVA. arthritis Status:Active Unknown Family Member Name Dates Details Brother 1 Comments:skin cancer Status:Active Brother 2 Comments:HTN Status:Active Father Comments:pacemaker, CAD/PTCA --80's Status:Active Mother Comments:HTN, hypercholester olemia, CVA. arthritis Status:Active Unknown Family Member Name Dates Details Brother 1 Comments:skin cancer Status:Active Brother 2 Comments:HTN Status:Active Father Comments:pacemaker, CAD/PTCA --80's Status:Active Mother Comments:HTN, hypercholester olemia, CVA. arthritis Status:Active Advance Directives No Advanced Directives Records FoundNo Advanced Directives Records Found Instructions Name Dates Details How to access health informa tion online Indication:Nonsmoker Start:24-Dec-2018 Instruction Type:Patient Education How to access health informa tion online - Detail Indication:Nonsmoker Start:24-Dec-2018 Instruction Type:Patient Education Patient Instructions Indication:Nonsmoker Start:24-Dec-2018 Instruction Type:Provider Instructions for Treatment How to access health informa tion online Indication:Osteoarthritis of both knees, unspecified osteoarthritis type Start:18-Jan-2018 Instruction Type:Patient Education How to access health informa tion online - Detail Indication:Osteoarthritis of both knees, unspecified osteoarthritis type Start:18-Jan-2018 Instruction Type:Patient Education Patient Instructions Indication:Osteoarthritis of both knees, unspecified osteoarthritis type Start:18-Jan-2018 Instruction Type:Provider Instructions for Treatment How to access health informa tion online Indication:Nonsmoker Start:04-Jan-2018 Instruction Type:Patient Education How to access health informa tion online - Detail Indication:Nonsmoker Start:04-Jan-2018 Instruction Type:Patient Education Patient Instructions Indication:Nonsmoker Start:04-Jan-2018 Instruction Type:Provider Instructions for Treatment How to access health informa tion online Indication:Nonsmoker Start:27-Dec-2017 Instruction Type:Patient Education How to access health informa tion online - Detail Indication:Nonsmoker Start:27-Dec-2017 Instruction Type:Patient Education Patient Instructions Indication:Nonsmoker Start:27-Dec-2017 Instruction Type:Provider Instructions for Treatment How to access health informa tion online Indication:Hip pain Start:30-Mar-2017 Instruction Type:Patient Education How to access health informa tion online - Detail Indication:Hip pain Start:30-Mar-2017 Instruction Type:Patient Education Patient Instructions Indication:Hip pain Start:30-Mar-2017 Instruction Type:Provider Instructions for Treatment How to access health informa tion online Indication:Lower back pain Start:09-Mar-2017 Instruction Type:Patient Education How to access health informa tion online - Detail Indication:Lower back pain Start:09-Mar-2017 Instruction Type:Patient Education Patient Instructions Indication:Lower back pain Start:09-Mar-2017 Instruction Type:Provider Instructions for Treatment Patient Instructions Indication:Closed fracture of tuft of distal phalanx of finger Start:22-Apr-2013 Instruction Type:Provider Instructions for Treatment Name Dates Details How to access health informa tion online Indication:Nonsmoker Start:24-Dec-2018 Instruction Type:Patient Education How to access health informa tion online - Detail Indication:Nonsmoker Start:24-Dec-2018 Instruction Type:Patient Education Patient Instructions Indication:Nonsmoker Start:24-Dec-2018 Instruction Type:Provider Instructions for Treatment How to access health informa tion online Indication:Osteoarthritis of both knees, unspecified osteoarthritis type Start:18-Jan-2018 Instruction Type:Patient Education How to access health informa tion online - Detail Indication:Osteoarthritis of both knees, unspecified osteoarthritis type Start:18-Jan-2018 Instruction Type:Patient Education Patient Instructions Indication:Osteoarthritis of both knees, unspecified osteoarthritis type Start:18-Jan-2018 Instruction Type:Provider Instructions for Treatment How to access health informa tion online Indication:Nonsmoker Start:04-Jan-2018 Instruction Type:Patient Education How to access health informa tion online - Detail Indication:Nonsmoker Start:04-Jan-2018 Instruction Type:Patient Education Patient Instructions Indication:Nonsmoker Start:04-Jan-2018 Instruction Type:Provider Instructions for Treatment How to access health informa tion online Indication:Nonsmoker Start:27-Dec-2017 Instruction Type:Patient Education How to access health informa tion online - Detail Indication:Nonsmoker Start:27-Dec-2017 Instruction Type:Patient Education Patient Instructions Indication:Nonsmoker Start:27-Dec-2017 Instruction Type:Provider Instructions for Treatment How to access health informa tion online Indication:Hip pain Start:30-Mar-2017 Instruction Type:Patient Education How to access health informa tion online - Detail Indication:Hip pain Start:30-Mar-2017 Instruction Type:Patient Education Patient Instructions Indication:Hip pain Start:30-Mar-2017 Instruction Type:Provider Instructions for Treatment How to access health informa tion online Indication:Lower back pain Start:09-Mar-2017 Instruction Type:Patient Education How to access health informa tion online - Detail Indication:Lower back pain Start:09-Mar-2017 Instruction Type:Patient Education Patient Instructions Indication:Lower back pain Start:09-Mar-2017 Instruction Type:Provider Instructions for Treatment Patient Instructions Indication:Closed fracture of tuft of distal phalanx of finger Start:22-Apr-2013 Instruction Type:Provider Instructions for Treatment Name Dates Details How to access health informa tion online Indication:Nonsmoker Start:24-Dec-2018 Instruction Type:Patient Education How to access health informa tion online - Detail Indication:Nonsmoker Start:24-Dec-2018 Instruction Type:Patient Education Patient Instructions Indication:Nonsmoker Start:24-Dec-2018 Instruction Type:Provider Instructions for Treatment How to access health informa tion online Indication:Osteoarthritis of both knees, unspecified osteoarthritis type Start:18-Jan-2018 Instruction Type:Patient Education How to access health informa tion online - Detail Indication:Osteoarthritis of both knees, unspecified osteoarthritis type Start:18-Jan-2018 Instruction Type:Patient Education Patient Instructions Indication:Osteoarthritis of both knees, unspecified osteoarthritis type Start:18-Jan-2018 Instruction Type:Provider Instructions for Treatment How to access health informa tion online Indication:Nonsmoker Start:04-Jan-2018 Instruction Type:Patient Education How to access health informa tion online - Detail Indication:Nonsmoker Start:04-Jan-2018 Instruction Type:Patient Education Patient Instructions Indication:Nonsmoker Start:04-Jan-2018 Instruction Type:Provider Instructions for Treatment How to access health informa tion online Indication:Nonsmoker Start:27-Dec-2017 Instruction Type:Patient Education How to access health informa tion online - Detail Indication:Nonsmoker Start:27-Dec-2017 Instruction Type:Patient Education Patient Instructions Indication:Nonsmoker Start:27-Dec-2017 Instruction Type:Provider Instructions for Treatment How to access health informa tion online Indication:Hip pain Start:30-Mar-2017 Instruction Type:Patient Education How to access health informa tion online - Detail Indication:Hip pain Start:30-Mar-2017 Instruction Type:Patient Education Patient Instructions Indication:Hip pain Start:30-Mar-2017 Instruction Type:Provider Instructions for Treatment How to access health informa tion online Indication:Lower back pain Start:09-Mar-2017 Instruction Type:Patient Education How to access health informa tion online - Detail Indication:Lower back pain Start:09-Mar-2017 Instruction Type:Patient Education Patient Instructions Indication:Lower back pain Start:09-Mar-2017 Instruction Type:Provider Instructions for Treatment Patient Instructions Indication:Closed fracture of tuft of distal phalanx of finger Start:22-Apr-2013 Instruction Type:Provider Instructions for Treatment Name Dates Details How to access health informa tion online Indication:Nonsmoker Start:10-Jun-2019 Instruction Type:Patient Education Patient Instructions Indication:Nonsmoker Start:10-Jun-2019 Instruction Type:Provider Instructions for Treatment How to access health informa tion online - Detail Indication:Nonsmoker Start:10-Jun-2019 Instruction Type:Patient Education How to access health informa tion online Indication:Nonsmoker Start:24-Dec-2018 Instruction Type:Patient Education How to access health informa tion online - Detail Indication:Nonsmoker Start:24-Dec-2018 Instruction Type:Patient Education Patient Instructions Indication:Nonsmoker Start:24-Dec-2018 Instruction Type:Provider Instructions for Treatment How to access health informa tion online Indication:Osteoarthritis of both knees, unspecified osteoarthritis type Start:18-Jan-2018 Instruction Type:Patient Education How to access health informa tion online - Detail Indication:Osteoarthritis of both knees, unspecified osteoarthritis type Start:18-Jan-2018 Instruction Type:Patient Education Patient Instructions Indication:Osteoarthritis of both knees, unspecified osteoarthritis type Start:18-Jan-2018 Instruction Type:Provider Instructions for Treatment How to access health informa tion online Indication:Nonsmoker Start:04-Jan-2018 Instruction Type:Patient Education How to access health informa tion online - Detail Indication:Nonsmoker Start:04-Jan-2018 Instruction Type:Patient Education Patient Instructions Indication:Nonsmoker Start:04-Jan-2018 Instruction Type:Provider Instructions for Treatment How to access health informa tion online Indication:Nonsmoker Start:27-Dec-2017 Instruction Type:Patient Education How to access health informa tion online - Detail Indication:Nonsmoker Start:27-Dec-2017 Instruction Type:Patient Education Patient Instructions Indication:Nonsmoker Start:27-Dec-2017 Instruction Type:Provider Instructions for Treatment How to access health informa tion online Indication:Hip pain Start:30-Mar-2017 Instruction Type:Patient Education How to access health informa tion online - Detail Indication:Hip pain Start:30-Mar-2017 Instruction Type:Patient Education Patient Instructions Indication:Hip pain Start:30-Mar-2017 Instruction Type:Provider Instructions for Treatment How to access health informa tion online Indication:Lower back pain Start:09-Mar-2017 Instruction Type:Patient Education How to access health informa tion online - Detail Indication:Lower back pain Start:09-Mar-2017 Instruction Type:Patient Education Patient Instructions Indication:Lower back pain Start:09-Mar-2017 Instruction Type:Provider Instructions for Treatment Patient Instructions Indication:Closed fracture of tuft of distal phalanx of finger Start:22-Apr-2013 Instruction Type:Provider Instructions for Treatment Name Dates Details How to access health informa tion online Indication:Nonsmoker Start:10-Jun-2019 Instruction Type:Patient Education Patient Instructions Indication:Nonsmoker Start:10-Jun-2019 Instruction Type:Provider Instructions for Treatment How to access health informa tion online - Detail Indication:Nonsmoker Start:10-Jun-2019 Instruction Type:Patient Education How to access health informa tion online Indication:Nonsmoker Start:24-Dec-2018 Instruction Type:Patient Education How to access health informa tion online - Detail Indication:Nonsmoker Start:24-Dec-2018 Instruction Type:Patient Education Patient Instructions Indication:Nonsmoker Start:24-Dec-2018 Instruction Type:Provider Instructions for Treatment How to access health informa tion online Indication:Osteoarthritis of both knees, unspecified osteoarthritis type Start:18-Jan-2018 Instruction Type:Patient Education How to access health informa tion online - Detail Indication:Osteoarthritis of both knees, unspecified osteoarthritis type Start:18-Jan-2018 Instruction Type:Patient Education Patient Instructions Indication:Osteoarthritis of both knees, unspecified osteoarthritis type Start:18-Jan-2018 Instruction Type:Provider Instructions for Treatment How to access health informa tion online Indication:Nonsmoker Start:04-Jan-2018 Instruction Type:Patient Education How to access health informa tion online - Detail Indication:Nonsmoker Start:04-Jan-2018 Instruction Type:Patient Education Patient Instructions Indication:Nonsmoker Start:04-Jan-2018 Instruction Type:Provider Instructions for Treatment How to access health informa tion online Indication:Nonsmoker Start:27-Dec-2017 Instruction Type:Patient Education How to access health informa tion online - Detail Indication:Nonsmoker Start:27-Dec-2017 Instruction Type:Patient Education Patient Instructions Indication:Nonsmoker Start:27-Dec-2017 Instruction Type:Provider Instructions for Treatment How to access health informa tion online Indication:Hip pain Start:30-Mar-2017 Instruction Type:Patient Education How to access health informa tion online - Detail Indication:Hip pain Start:30-Mar-2017 Instruction Type:Patient Education Patient Instructions Indication:Hip pain Start:30-Mar-2017 Instruction Type:Provider Instructions for Treatment How to access health informa tion online Indication:Lower back pain Start:09-Mar-2017 Instruction Type:Patient Education How to access health informa tion online - Detail Indication:Lower back pain Start:09-Mar-2017 Instruction Type:Patient Education Patient Instructions Indication:Lower back pain Start:09-Mar-2017 Instruction Type:Provider Instructions for Treatment Patient Instructions Indication:Closed fracture of tuft of distal phalanx of finger Start:22-Apr-2013 Instruction Type:Provider Instructions for Treatment Name Dates Details How to access health informa tion online Indication:Nonsmoker Start:10-Jun-2019 Instruction Type:Patient Education Patient Instructions Indication:Nonsmoker Start:10-Jun-2019 Instruction Type:Provider Instructions for Treatment How to access health informa tion online - Detail Indication:Nonsmoker Start:10-Jun-2019 Instruction Type:Patient Education How to access health informa tion online Indication:Nonsmoker Start:24-Dec-2018 Instruction Type:Patient Education How to access health informa tion online - Detail Indication:Nonsmoker Start:24-Dec-2018 Instruction Type:Patient Education Patient Instructions Indication:Nonsmoker Start:24-Dec-2018 Instruction Type:Provider Instructions for Treatment How to access health informa tion online Indication:Osteoarthritis of both knees, unspecified osteoarthritis type Start:18-Jan-2018 Instruction Type:Patient Education How to access health informa tion online - Detail Indication:Osteoarthritis of both knees, unspecified osteoarthritis type Start:18-Jan-2018 Instruction Type:Patient Education Patient Instructions Indication:Osteoarthritis of both knees, unspecified osteoarthritis type Start:18-Jan-2018 Instruction Type:Provider Instructions for Treatment How to access health informa tion online Indication:Nonsmoker Start:04-Jan-2018 Instruction Type:Patient Education How to access health informa tion online - Detail Indication:Nonsmoker Start:04-Jan-2018 Instruction Type:Patient Education Patient Instructions Indication:Nonsmoker Start:04-Jan-2018 Instruction Type:Provider Instructions for Treatment How to access health informa tion online Indication:Nonsmoker Start:27-Dec-2017 Instruction Type:Patient Education How to access health informa tion online - Detail Indication:Nonsmoker Start:27-Dec-2017 Instruction Type:Patient Education Patient Instructions Indication:Nonsmoker Start:27-Dec-2017 Instruction Type:Provider Instructions for Treatment How to access health informa tion online Indication:Hip pain Start:30-Mar-2017 Instruction Type:Patient Education How to access health informa tion online - Detail Indication:Hip pain Start:30-Mar-2017 Instruction Type:Patient Education Patient Instructions Indication:Hip pain Start:30-Mar-2017 Instruction Type:Provider Instructions for Treatment How to access health informa tion online Indication:Lower back pain Start:09-Mar-2017 Instruction Type:Patient Education How to access health informa tion online - Detail Indication:Lower back pain Start:09-Mar-2017 Instruction Type:Patient Education Patient Instructions Indication:Lower back pain Start:09-Mar-2017 Instruction Type:Provider Instructions for Treatment Patient Instructions Indication:Closed fracture of tuft of distal phalanx of finger Start:22-Apr-2013 Instruction Type:Provider Instructions for Treatment Name Dates Details How to access health informa tion online Indication:Nonsmoker Start:09-Jul-2020 Instruction Type:Patient Education How to access health informa tion online - Detail Indication:Nonsmoker Start:09-Jul-2020 Instruction Type:Patient Education Patient Instructions Indication:Nonsmoker Start:09-Jul-2020 Instruction Type:Provider Instructions for Treatment How to access health informa tion online Indication:Nonsmoker Start:13-Jan-2020 Instruction Type:Patient Education How to access health informa tion online - Detail Indication:Nonsmoker Start:13-Jan-2020 Instruction Type:Patient Education Patient Instructions Indication:Nonsmoker Start:13-Jan-2020 Instruction Type:Provider Instructions for Treatment How to access health informa tion online Indication:Nonsmoker Start:10-Jun-2019 Instruction Type:Patient Education Patient Instructions Indication:Nonsmoker Start:10-Jun-2019 Instruction Type:Provider Instructions for Treatment How to access health informa tion online - Detail Indication:Nonsmoker Start:10-Jun-2019 Instruction Type:Patient Education How to access health informa tion online Indication:Nonsmoker Start:24-Dec-2018 Instruction Type:Patient Education How to access health informa tion online - Detail Indication:Nonsmoker Start:24-Dec-2018 Instruction Type:Patient Education Patient Instructions Indication:Nonsmoker Start:24-Dec-2018 Instruction Type:Provider Instructions for Treatment How to access health informa tion online Indication:Osteoarthritis of both knees, unspecified osteoarthritis type Start:18-Jan-2018 Instruction Type:Patient Education How to access health informa tion online - Detail Indication:Osteoarthritis of both knees, unspecified osteoarthritis type Start:18-Jan-2018 Instruction Type:Patient Education Patient Instructions Indication:Osteoarthritis of both knees, unspecified osteoarthritis type Start:18-Jan-2018 Instruction Type:Provider Instructions for Treatment How to access health informa tion online Indication:Nonsmoker Start:04-Jan-2018 Instruction Type:Patient Education How to access health informa tion online - Detail Indication:Nonsmoker Start:04-Jan-2018 Instruction Type:Patient Education Patient Instructions Indication:Nonsmoker Start:04-Jan-2018 Instruction Type:Provider Instructions for Treatment How to access health informa tion online Indication:Nonsmoker Start:27-Dec-2017 Instruction Type:Patient Education How to access health informa tion online - Detail Indication:Nonsmoker Start:27-Dec-2017 Instruction Type:Patient Education Patient Instructions Indication:Nonsmoker Start:27-Dec-2017 Instruction Type:Provider Instructions for Treatment How to access health informa tion online Indication:Hip pain Start:30-Mar-2017 Instruction Type:Patient Education How to access health informa tion online - Detail Indication:Hip pain Start:30-Mar-2017 Instruction Type:Patient Education Patient Instructions Indication:Hip pain Start:30-Mar-2017 Instruction Type:Provider Instructions for Treatment How to access health informa tion online Indication:Lower back pain Start:09-Mar-2017 Instruction Type:Patient Education How to access health informa tion online - Detail Indication:Lower back pain Start:09-Mar-2017 Instruction Type:Patient Education Patient Instructions Indication:Lower back pain Start:09-Mar-2017 Instruction Type:Provider Instructions for Treatment Patient Instructions Indication:Closed fracture of tuft of distal phalanx of finger Start:22-Apr-2013 Instruction Type:Provider Instructions for Treatment Name Dates Details How to access health informa tion online Indication:Nonsmoker Start:09-Jul-2020 Instruction Type:Patient Education How to access health informa tion online - Detail Indication:Nonsmoker Start:09-Jul-2020 Instruction Type:Patient Education Patient Instructions Indication:Nonsmoker Start:09-Jul-2020 Instruction Type:Provider Instructions for Treatment How to access health informa tion online Indication:Nonsmoker Start:13-Jan-2020 Instruction Type:Patient Education How to access health informa tion online - Detail Indication:Nonsmoker Start:13-Jan-2020 Instruction Type:Patient Education Patient Instructions Indication:Nonsmoker Start:13-Jan-2020 Instruction Type:Provider Instructions for Treatment How to access health informa tion online Indication:Nonsmoker Start:10-Jun-2019 Instruction Type:Patient Education Patient Instructions Indication:Nonsmoker Start:10-Jun-2019 Instruction Type:Provider Instructions for Treatment How to access health informa tion online - Detail Indication:Nonsmoker Start:10-Jun-2019 Instruction Type:Patient Education How to access health informa tion online Indication:Nonsmoker Start:24-Dec-2018 Instruction Type:Patient Education How to access health informa tion online - Detail Indication:Nonsmoker Start:24-Dec-2018 Instruction Type:Patient Education Patient Instructions Indication:Nonsmoker Start:24-Dec-2018 Instruction Type:Provider Instructions for Treatment How to access health informa tion online Indication:Osteoarthritis of both knees, unspecified osteoarthritis type Start:18-Jan-2018 Instruction Type:Patient Education How to access health informa tion online - Detail Indication:Osteoarthritis of both knees, unspecified osteoarthritis type Start:18-Jan-2018 Instruction Type:Patient Education Patient Instructions Indication:Osteoarthritis of both knees, unspecified osteoarthritis type Start:18-Jan-2018 Instruction Type:Provider Instructions for Treatment How to access health informa tion online Indication:Nonsmoker Start:04-Jan-2018 Instruction Type:Patient Education How to access health informa tion online - Detail Indication:Nonsmoker Start:04-Jan-2018 Instruction Type:Patient Education Patient Instructions Indication:Nonsmoker Start:04-Jan-2018 Instruction Type:Provider Instructions for Treatment How to access health informa tion online Indication:Nonsmoker Start:27-Dec-2017 Instruction Type:Patient Education How to access health informa tion online - Detail Indication:Nonsmoker Start:27-Dec-2017 Instruction Type:Patient Education Patient Instructions Indication:Nonsmoker Start:27-Dec-2017 Instruction Type:Provider Instructions for Treatment How to access health informa tion online Indication:Hip pain Start:30-Mar-2017 Instruction Type:Patient Education How to access health informa tion online - Detail Indication:Hip pain Start:30-Mar-2017 Instruction Type:Patient Education Patient Instructions Indication:Hip pain Start:30-Mar-2017 Instruction Type:Provider Instructions for Treatment How to access health informa tion online Indication:Lower back pain Start:09-Mar-2017 Instruction Type:Patient Education How to access health informa tion online - Detail Indication:Lower back pain Start:09-Mar-2017 Instruction Type:Patient Education Patient Instructions Indication:Lower back pain Start:09-Mar-2017 Instruction Type:Provider Instructions for Treatment Patient Instructions Indication:Closed fracture of tuft of distal phalanx of finger Start:22-Apr-2013 Instruction Type:Provider Instructions for Treatment Name Dates Details How to access health informa tion online Indication:Nonsmoker Start:10-Jun-2019 Instruction Type:Patient Education Patient Instructions Indication:Nonsmoker Start:10-Jun-2019 Instruction Type:Provider Instructions for Treatment How to access health informa tion online - Detail Indication:Nonsmoker Start:10-Jun-2019 Instruction Type:Patient Education How to access health informa tion online Indication:Nonsmoker Start:24-Dec-2018 Instruction Type:Patient Education How to access health informa tion online - Detail Indication:Nonsmoker Start:24-Dec-2018 Instruction Type:Patient Education Patient Instructions Indication:Nonsmoker Start:24-Dec-2018 Instruction Type:Provider Instructions for Treatment How to access health informa tion online Indication:Osteoarthritis of both knees, unspecified osteoarthritis type Start:18-Jan-2018 Instruction Type:Patient Education How to access health informa tion online - Detail Indication:Osteoarthritis of both knees, unspecified osteoarthritis type Start:18-Jan-2018 Instruction Type:Patient Education Patient Instructions Indication:Osteoarthritis of both knees, unspecified osteoarthritis type Start:18-Jan-2018 Instruction Type:Provider Instructions for Treatment How to access health informa tion online Indication:Nonsmoker Start:04-Jan-2018 Instruction Type:Patient Education How to access health informa tion online - Detail Indication:Nonsmoker Start:04-Jan-2018 Instruction Type:Patient Education Patient Instructions Indication:Nonsmoker Start:04-Jan-2018 Instruction Type:Provider Instructions for Treatment How to access health informa tion online Indication:Nonsmoker Start:27-Dec-2017 Instruction Type:Patient Education How to access health informa tion online - Detail Indication:Nonsmoker Start:27-Dec-2017 Instruction Type:Patient Education Patient Instructions Indication:Nonsmoker Start:27-Dec-2017 Instruction Type:Provider Instructions for Treatment How to access health informa tion online Indication:Hip pain Start:30-Mar-2017 Instruction Type:Patient Education How to access health informa tion online - Detail Indication:Hip pain Start:30-Mar-2017 Instruction Type:Patient Education Patient Instructions Indication:Hip pain Start:30-Mar-2017 Instruction Type:Provider Instructions for Treatment How to access health informa tion online Indication:Lower back pain Start:09-Mar-2017 Instruction Type:Patient Education How to access health informa tion online - Detail Indication:Lower back pain Start:09-Mar-2017 Instruction Type:Patient Education Patient Instructions Indication:Lower back pain Start:09-Mar-2017 Instruction Type:Provider Instructions for Treatment Patient Instructions Indication:Closed fracture of tuft of distal phalanx of finger Start:22-Apr-2013 Instruction Type:Provider Instructions for Treatment Additional Source Comments INFORMATION SOURCE (unrecogn ized section and content) DATE CREATED AUTHOR AUTHOR'S DEAN ATION 01/06/2019 [facility] ([place]) FOR RECORDS PERTAINING TO PATIENTS WHO ARE OR HAVE BEEN ENROLLED IN A CHEMICAL DEPENDENCY/SUBSTANCEABUSE PROGRAM, SOME INFORMATION MAY BE OMITTED. This clinical summary was aggregated from multiple sources. Caution should be exercised in using it in the provision of clinical care. This summary normalizes information from multiple sources, and as a consequence, information in this document may materially change the coding, format and clinical context of patient data. In addition, data may be omitted in some cases. CLINICAL DECISIONS SHOULD BE BASED ON THE PRIMARY CLINICAL RECORDS. [employer] [facility]. provides no warranty or guarantee of the accuracy or completeness of information in this document.
== END | disposition home or self-care (01) ==
PROVIDERS: PCP Internal Medicine; Referring Provider Internal Medicine; Visit Provider Internal Medicine
DX: R92.8 Other abnormal and inconclusive findings on diagnostic imaging of breast (principal)
CPT/HCPCS: 76642; 77062; 77066; G0279

== ENCOUNTER → 2023-10-30 | Outpatient (CLI) | payer BC, SELFPAY ==
--- NOTE | 2023-10-30 13:52 | BD_ITS ---
STUDY: DUAL ENERGY X-RAY ABSORPTIOMETRY / DXA REASON FOR EXAM: Female, 63 years old. Osteoporosis TECHNIQUE: Bone Mineral Density (BMD) measurements of lumbar spine and bilateral hips were obtained. COMPARISON: Comparison is made with prior study dated March 20, 2017. FINDINGS: Lumbar Spine (L1-L4): g/cm2 (0.837) / T-score (-1.9) / Z-score (-0.2) Findings are suggestive of osteopenia with a moderate fracture risk. Left Femur Total: g/cm2 (0.887) / T-score (-0.5) / Z-score (0.8) Left Femoral Neck: g/cm2 (0.701) / T-score (-1.3) / Z-score (0.2) Right Femur Total: g/cm2 (0.918) / T-score (-0.2) / Z-score (1.0) Right Femoral Neck: g/cm2 (0.726) / T-score (-1.1) / Z-score (0.4) The T-Scores on the most recent prior examination were: Lumbar Spine (L1-L4): There has been improvement of bone density since the previous examination. Left Femur Total: which represents an improvement of 1.9%. Right Femur Total: which represents an improvement of 1.7%. BD/Dexa Bone Density Study IMPRESSION: The patient is considered osteopenic as outlined below according to World Vasu Organization (WHO) criteria with a moderate fracture risk. There has been improvement of bone density since the previous examination. Reference Information: The T-score is the number of standard deviations above or below the standard which is normal for young adults at their peak bone mineral density. The World Health Organization (WHO) interprets the T-scores as follows: Above -1 Normal bone density Between -1 and -2.5 Osteopenia Equal to / or below -2.5 Osteoporosis As a practical clinical guideline, osteopenia may be graded as follows: Mild -1 through -1.5 Moderate -1.6 through -2.0 Severe -2.1 through -2.4 The Z-score is the number of standard deviations above or below age-matched controls. A Z-score of less than -1.5 would be considered abnormal. References: 1. NIH Osteoporosis and Related Bone Diseases www osteo.org 2. International Society for Clinical Densitometry www iscd.org 3. National Osteoporosis Foundation www nof.org Electronically Signed: Al David MD at 14:17 EDT ,
== END | disposition home or self-care (01) ==
PROVIDERS: PCP Internal Medicine; Referring Provider Internal Medicine; Visit Provider Internal Medicine
DX: M81.0 Age-related osteoporosis without current pathological fracture (principal)
CPT/HCPCS: 77080

== ENCOUNTER → 2023-11-06 | Outpatient (CLI) | payer BC, SELFPAY ==
--- NOTE | 2023-11-06 13:41 | ECHOD_ITS ---
Reason For Study: SOB Procedure This was a 2D Doppler, Color Flow transthoracic echocardiogram. Exam performed in department. Left Ventricle Normal LV size. Left ventricular systolic function is normal. The estimated ejection fraction is 65 %. Stage 1 diastolic dysfunction. No regional wall motion abnormalities noted. Right Ventricle Normal RV size. Normal systolic function. Atria Normal left atrium. Normal right atrium. Mitral Valve Normal mitral valve. Tricuspid Valve Normal tricuspid valve. Mild (1+) tricuspid valve insufficiency. Pulmonary artery systolic pressure is 30 mmHg. Aortic Valve Normal aortic valve. Trisinus/trileaflet aortic valve. Pulmonic Valve Normal pulmonic valve. Great Vessels Normal aortic root. The pulmonary artery is normal size. Normal inferior vena cava. Pericardium/Pleural No pericardial effusion. MMode/2D Measurements & Calculations LVIDd: 4.7 cm IVSd: 0.93 cm Ao root diam: 3.1 cm LVIDs: 2.9 cm LVPWd: 1.1 cm RVDd: 3.2 cm FS: 39.3 % LAV(MOD-bp): 58.5 ml LVAd ap4: 22.8 cm2 SV(MOD-sp4): 45.5 ml LAV(MOD-bp) Indexed: 31.8 ml/m2 LVLd ap4: 6.4 cm LAV(MOD-sp2): 53.0 ml EDV(MOD-sp4): 67.5 ml LAV(MOD-sp4): 63.6 ml EDV(sp4-el): 69.5 ml LVAs ap4: 12.0 cm2 LVLs ap4: 5.5 cm ESV(MOD-sp4): 22.0 ml ESV(sp4-el): 22.3 ml EF(MOD-sp4): 67.4 % EF(sp4-el): 68.0 % SV(sp4-el): 47.2 ml LA A4 area: 20.4 cm2 RA A4 area: 14.0 cm2 TAPSE: 2.2 cm Time Measurements MV dec time: 0.24 sec Doppler Measurements & Calculations MV E max dav: 88.8 cm/sec Lat Peak E' Dav: 5.1 cm/sec Med Peak E' Dav: 6.3 cm/sec MV A max dav: 109.6 cm/sec E/E' lat: 17.5 E/E' med: 14.1 MV E/A: 0.81 MV dec slope: 374.7 cm/sec2 Ao V2 max: 161.3 cm/sec LV V1 max: 139.0 cm/sec Ao max P.4 mmHg LV V1 max P.7 mmHg Ao V2 mean: 100.3 cm/sec LV V1 mean P.4 mmHg Ao mean P.8 mmHg LV V1 mean: 84.9 cm/sec Ao V2 VTI: 33.2 cm LV V1 VTI: 26.5 cm AV (velocity ratio): 0.80 PA V2 max: 102.6 cm/sec TR max dav: 257.0 cm/sec PA V2 mean: 74.3 cm/sec TR max P.4 mmHg ECHO/Echo Complete Interpretation Summary Normal LV size. Left ventricular systolic function is normal. The estimated ejection fraction is 65 %. Stage 1 diastolic dysfunction. Mild (1+) tricuspid valve insufficiency. Ordering Physician: Krissy Reeder Referring Physician: Krissy Reeder Performed By: Corinne Levy, HUA
== END | disposition home or self-care (01) ==
PROVIDERS: PCP Internal Medicine; Referring Provider Internal Medicine; Visit Provider Internal Medicine
DX: R06.02 Shortness of breath (principal)
CPT/HCPCS: 93306

== ENCOUNTER → 2023-11-09 | Outpatient (CLI) | payer BC, SELFPAY ==
--- NOTE | 2023-11-09 | BRBX_PTH ---
PATIENT: BRAYAN PABON LOC: [facility]#:[id number] AGE/SX: 63/F ROOM: RE11/09/[address]: Dr. Efe Mendez MD : 1960 BED: DIS: 11/09/2023 SPEC #: [id number] RECD: 11/09/23 14:54 STATUS: NADIA CRUZ #: [id number] GAYATHRI: 11/09/23 00:[address]: Efe Mendez DEPT: SURGICAL PATHOLOGY RECD BY: Paco Rodarte ENTERED: 11/12/23 08:54 SP TYPE: BREAST BX OTHR DR: MD Juana Archer PA-C Tissues: Right breast, NOS Procedures: Surgery Specimen Level IV HEADER OPERATION: Ultrasound guided Right breast core biopsy PRE-OP DIAGNOSIS: Right breast lesion TISSUE SUBMITTED: Right breast 7 o'clock, 4 cm from the nipple MICROSCOPIC DIAGNOSIS Right breast, 7 o'clock, 4cm from the nipple, Ultrasound guided core biopsy; Fatty breast tissue with focal dense fibrosis. Negative for atypia or malignancy. See comment. / 11/13/2023 COMMENT Correlation with clinical, radiologic findings and appropriate follow up are necessary. MICROSCOPIC DESCRIPTION Slides are reviewed. GROSS DESCRIPTION Received in fixative is one container labeled with the patient name and designated right breast. The specimen consists of multiple elongated fragments of smalls-yellow fibrotic loose tissue measuring in aggregate 2.0 x 1.0 x 0.1 cm. The specimen is totally submitted in 1 cassette. / 11/12/23 TC:5 CPT: 51917
--- NOTE | 2023-11-09 13:49 | US_ITS ---
ULTRASOUND GUIDED CORE BIOPSY REASON FOR EXAM: Female, 63 years old. Right breast mass PERTINENT HISTORY: Hypoechoic nodule in the right breast. COMPARISON: Comparison is made with prior sonogram dated October 19, 2023. TECHNIQUE: (All elements of maximal sterile barrier technique followed, including US elements as applicable) Upon arrival to the breast imaging department the patient''s identification was confirmed and the RIGHT breast was marked according to time-out protocol. Ultrasound guided core biopsy and clip placement, to include potential risks and complications, was explained in full to the patient. Written and verbal consent were obtained prior to initiation of the procedure. The RIGHT breast was prepped and draped in standard sterile fashion and local anesthesia was obtained with 1% buffered lidocaine. A small dermatotomy was then made to introduce the core biopsy needle. Under ultrasound guidance multiple core samples were obtained with a 13 gauge needle and submitted in formalin for pathology. A titanium clip was then deployed into the biopsy cavity under ultrasound guidance. Upon completion of the procedure hemostasis was obtained and sterile dressing was applied. The patient tolerated the entire procedure without immediate complication and was discharged from the breast imaging department in good condition. US/US Breast Biopsy 1st Lesion IMPRESSION: Ultrasound guided core biopsy of a mass in the RIGHT breast at 7:00 position of the breast at 4 cm from the nipple. without complication. Electronically Signed: Al David MD at 15:26 EDT ,
--- NOTE | 2023-11-09 14:42 | OP.PCM_ITS ---
Report of Operation Date of Procedure: 11/09/23 Pre-Operative Diagnosis: Right breast lesion Post-Operative Diagnosis: Same Surgery/Procedure Performed:: Ultrasound-guided right breast core needle biopsy with placement of clip Type of Anesthesia: Local Specimen's removed: Right breast biopsies Description of Procedure: The right breast was inspected and the area of concern was localized by the radiology special procedure tech. Next the lateral breast was prepped and draped in usual sterile fashion. A small area of skin was injected with local anesthetic. And a small amelie was made in the skin with a scalpel. Using the mammotome needle and ultrasound guidance the mass was biopsied several times and the needle was removed. A titanium clip was then placed into the lesion and a Steri-Strip and bandage were placed over the incision. Patient tolerated the procedure well. I will call her with results next week.
== END | disposition home or self-care (01) ==
PROVIDERS: PCP Internal Medicine; Referring Provider Surgery; Visit Provider Surgery
DX: N60.31 Fibrosclerosis of right breast (principal)
CPT/HCPCS: 19083; 88305

== ENCOUNTER → 2023-11-13 | Outpatient (CLI) | payer BC, SELFPAY ==
[2023-11-13 09:36] LABS: Absolute Lymphocyte Count 1.66 X10^3/uL (0.83-4.51); Absolute Neutrophil Count 3.9 X10^3/uL (2.0-7.7); Basophil# 0.04 X10^3/uL; Basophil% 0.6 % (0-1); Eosinophil# 0.21 X10^3/uL; Eosinophils% 3.3 % (0-5); Hematocrit 47.9 % (37-47); Hemoglobin 15.5 g/dL (12.0-15.0); Lymphocyte # 1.66 X10^3/ul (0.83-4.51); Mean Corp Hgb Conc 32.4 g/dL (32-36); Mean Corpuscular Hgb 29.2 pg (27.0-32.0); Mean Corpuscular Volume 90.4 fL (81-99); Mean Platelet Vol. 11.9 fl (6.2-12.0); Monocyte# 0.59 X10^3/uL; Monocyte% 9.2 % (0-10); NRBC Flagged by Analyzer 0 % (0-5); Neutrophil # 3.86 X10^3/uL (2.7-7.7); Neutrophil % 60.4 % (47-70); Platelet Count 265 K/mm3 (150-450); RBC Distribution Width CV 13.7 % (11.6-14.6); RBC Distribution Width SD 45.9 fl (35.1-43.9); White Blood Count 6.4 K/mm3 (4.4-11.0)
[2023-11-13 10:16] LABS: ALB/GLOB Ratio 0.9 RATIO (0.9-2.4); AST(SGOT) 27 U/L (15-37); Alanine Aminotransfer ALT/SGPT 46 U/L (13-56); Albumin, Serum 3.8 g/dL (3.2-5.0); Alkaline Phosphatase 94 U/L (45-117); Anion Gap 8 (5-15); BUN 25 mg/dL (7-18); BUN/Creat Ratio 33.4 RATIO (10-20); Chloride 105 mmol/L (98-107); Cholesterol 224 mg/dL (200); Creatinine, Serum 0.75 mg/dL (0.55-1.02); EST Glomerular Filtration Rate 83 mL/min (>60); Est Glom Filt Rate - Afr Amer 100 mL/min (>60); Globulin 4.2 g/dL (2.2-4.2); Glucose 101 mg/dL (74-106); High Density Lipoprotein 52 mg/dL; Sodium Level 139 mmol/L (136-145); Thyroid Stim Hormone (TSH) 0.98 uIU/mL (0.358-3.74); Triglycerides 130 mg/dL; Very Low Density Lipoprotein 26 mg/dL (5-40)
== END | disposition home or self-care (01) ==
LOC: LAB 09:11
PROVIDERS: PCP Internal Medicine; Referring Provider Internal Medicine; Visit Provider Internal Medicine
DX: Z13.6 Encounter for screening for cardiovascular disorders (principal); R06.02 Shortness of breath
CPT/HCPCS: 36415; 80050; 80053; 80061; 84443; 85025